=== PATIENT | female | born 1955 | race Caucasian/White ===

== ENCOUNTER 2016-08-27 12:13 | Day surgery (SDC) | payer OTHER ==
[~2016-08-27 12:13] MED LIST: ACET-703 PO; AMIT24CA5 PO; ASPI1TAB69 PO; BACL20TA PO; BETH25 PO; DOMPERIDONE PO; FISH120014 PO; FLUT1INH INH; FLUT1SPR9 EACH NARE; GABA100C4 PO; GARL1CAP PO; HYDR12.57 PO; IPRA17I INH; LISI2.5T3 PO; NYST1000 SWISH-SWAL; PANT20TA2 PO; POTA-163 PO; VENTAER INH; ZOFR8TAB PO
[2016-08-27 12:44] VITALS: BP 115/75; PULSE 72; RESP 20; TEMP 97.9; O2SAT 93
[2016-08-27] MEDS ORDERED: SODIUM CHLORIDE 0.9% 1000 ML IV SCH (13:00)
== END 2016-08-27 13:10 | disposition home or self-care (01) ==
LOC: HROP 12:13 → HRIP 12:14 → HROP 13:10
PROVIDERS: ATTEND Radiology Body Imaging
DX: K94.23 Gastrostomy malfunction (principal)

== ENCOUNTER 2016-09-01 11:37 | Day surgery (SDC) | payer OTHER ==
[2016-09-01 12:00] VITALS: BP 109/80; PULSE 82; RESP 20; TEMP 97.2; O2SAT 85
== END 2016-09-01 13:40 | disposition home or self-care (01) ==
LOC: HROP 11:37 → HRIP 11:44 → HROP 13:40
PROVIDERS: ATTEND Radiology Diagnostic Radiology
DX: K94.23 Gastrostomy malfunction (principal)

== ENCOUNTER → 2016-10-12 | Outpatient (CLI) | payer OTHER ==
[~2016-10-12] MED LIST changes: +CLON0.5T PO; +CREON12 PO; +FEXO180T PO; -FISH120014 PO; -GARL1CAP PO; -HYDR12.57 PO; +LACT10SO27; -LISI2.5T3 PO; +LOVA40TA PO; +SCOP1PAT2; +[UNRECOGNIZED DRUG - CODE] PO
--- NOTE | 2016-10-12 10:37 | RADRPT ---
EXAM DATE/TIME: 10/12/2016 00:00 [facility] COMPARISON: BA SWALLOW W/SPEECH PATHOLOGY, April 13, 2016, 9:52. INDICATIONS : Dysphagia FLUORO TIME: 1.6 minutes IMAGE COUNT: 0 CONTRAST: Dose as prescribed by speech pathologist. MEDICAL HISTORY : Stroke. Gastroparesis. SURGICAL HISTORY : peg tube, anterior cervical fusion ENCOUNTER: Initial ACUITY: 1 year PAIN SCORE: 0/10 LOCATION: Bilateral neck FINDINGS: A modified barium swallow was performed with speech pathology. Patient was given a variety of liquids to swallow. There was penetration seen with thin liquids. No aspiration was seen. For a full detailed report, see report by the speech pathologist. CONCLUSION: Penetration seen with thin liquids. Andrew Porter MD on October 12, 2016 at 10:35 Board Certified Radiologist. This report was verified electronically.
== END ==
LOC: HRAD 09:52
PROVIDERS: ATTEND Internal Medicine Gastroenterology
DX: R13.10 Dysphagia, unspecified (principal); R10.9 Unspecified abdominal pain
CPT/HCPCS: 74230; 92611; G8996; G8997; G8998

== ENCOUNTER 2016-11-16 11:20 | Observation (INO) | payer OTHER ==
[2016-11-16] VITALS (8 sets, daily range): BP systolic 100–118; BP diastolic 67–78; PULSE 50–84; RESP 16–20; TEMP 96.1–96.5; O2SAT 95–100
[~2016-11-16 11:20] MED LIST changes: -CLON0.5T PO; -CREON12 PO; -FEXO180T PO; -LACT10SO27; -LOVA40TA PO; -SCOP1PAT2; -[UNRECOGNIZED DRUG - CODE] PO
[2016-11-16] MEDS ORDERED: SODIUM CHLORIDE 0.9% FLUSH 10 ML FLUSH IVF PRN (11:45)
[2016-11-16] MEDS ORDERED: [UNRECOGNIZED DRUG - CODE] PO (11:51)
[2016-11-16] MEDS ORDERED: LOVA40TA PO (11:51)
[2016-11-16] MEDS ORDERED: CLON0.5T PO (11:51)
[2016-11-16] MEDS ORDERED: SCOP1PAT2 (11:51)
[2016-11-16] MEDS ORDERED: FEXO180T PO (11:51)
[2016-11-16] MEDS ORDERED: CREON12 PO (11:51)
[2016-11-16] MEDS ORDERED: LACT10SO27 (11:52)
[2016-11-16 11:53] LABS: AUTOMATED NEUTROPHIL # 3.2 TH/MM3 (1.8-7.7); BASOPHIL # 0.1 TH/MM3 (0-0.2); BASOPHIL % 1.3 % (0.0-2.0); EOSINOPHIL # 0.2 TH/MM3 (0-0.4); EOSINOPHIL % 4.7 % (0.0-4.0); HEMATOCRIT 49.5 % (35.0-46.0); HEMO FLAGS DIFF FINAL; LYMPH % 23.6 % (9.0-44.0); LYMPHOCYTE # 1.2 TH/MM3 (1.0-4.8); MEAN CELL VOLUME 90.9 FL (80.0-100.0); MEAN CORPUSCULAR HEMOGLOBIN 29.4 PG (27.0-34.0); MEAN CORPUSCULAR HGB CONC 32.3 % (32.0-36.0); MONO % 8.1 % (0.0-8.0); NEUT % 62.3 % (16.0-70.0); PLATELET COUNT 150 TH/MM3 (150-450); RED BLOOD COUNT 5.44 MIL/MM3 (4.00-5.30); RED CELL DISTRIBUTION WIDTH 16.7 % (11.6-17.2); WHITE BLOOD COUNT 5.1 TH/MM3 (4.0-11.0)
[2016-11-16 12:02] LABS: CHLORIDE 100 MEQ/L (98-107); POTASSIUM 3.5 MEQ/L (3.5-5.1); SODIUM (NA) 140 MEQ/L (136-145)
[2016-11-16 12:06] LABS: APTT (PATIENT) 28.9 SEC (24.3-30.1); PROTHROMBIN TIME - PATIENT 10.9 SEC (9.8-11.6)
[2016-11-16 12:07] LABS: ANION GAP 8 MEQ/L (5-15); BICARBONATE 32.3 MEQ/L (21.0-32.0); BLOOD UREA NITROGEN 8 MG/DL (7-18)
[2016-11-16 12:10] LABS: ALT (GPT) 25 U/L (10-53); AST (GOT) 21 U/L (15-37); GLOMERULAR FILTRATION RATE 79 ML/MIN (>89)
[2016-11-16 12:12] LABS: TOTAL BILIRUBIN ADULT 0.5 MG/DL (0.2-1.0)
[2016-11-16 12:13] LABS: ALKALINE PHOSPHATASE 117 U/L (45-117)
[2016-11-16 12:16] LABS: CREATINE KINASE 56 U/L (26-192)
--- NOTE | 2016-11-16 12:20 | RADHPO ---
EXAM DATE/TIME: 11/16/2016 11:47 [facility] COMPARISON: CHEST SINGLE AP, January 14, 2015, 13:42. INDICATIONS : Congestion since feeding tube after surgery was placed. New on set of general weakness and numbness. MEDICAL HISTORY : Hypertension. Chronic obstructive pulmonary disease. Gastroesophageal reflux disease. CVA. A-fib. Asthma. Seizures. SURGICAL HISTORY : Julian fundoplication ENCOUNTER: Initial ACUITY: 4 - 6 months PAIN SCORE: 0/10 LOCATION: Bilateral chest FINDINGS: The heart and mediastinal structures are normal. The pulmonary vascular pattern is also normal. No acute focal pulmonary infiltrate is noted. Scattered mild chronic interstitial changes are noted chai aterally. CONCLUSION: 1. No acute focal pulmonary infiltrate or pulmonary vascular congestion. Natalio Del Angel MD on November 16, 2016 at 12:13 Board Certified Radiologist. This report was verified electronically.
--- NOTE | 2016-11-16 12:22 | PD ---
HPI Chief Complaint: Numbness/Tingling Time Seen by Provider: 11:30 Travel History International Travel<30 days: No Contact w/Intl Traveler<30days: No Traveled to known affect area: No History of Present Illness HPI 61-year-old female presents with right hand weakness and tingling that started last night about 9 PM. She states this morning she had difficulty writing and holding onto things. She states that she's having no other concurrent complaints. She states that Dr. Lorenz is her neurologist that she follows with for her history of seizures and neuropathy. She states on a MRI she had a small stroke show up but she didn't have any known history of stroke that she was aware of. Quality is tingly. Severity is to hand. She denies specific modifying factors. She takes a baby aspirin normally every day PFS Past Medical History Arthritis: No Asthma: Yes Blood Disorders: No Anxiety: No Depression: No Cancer: No Cardiovascular Problems: Yes (IRREGULAR HEARTBEAT) Chemotherapy: No COPD: Yes Cerebrovascular Accident: Yes Diabetes: No Diminished Hearing: No Endocrine: No Gastrointestinal Disorders: Yes (GERD, DIFFICULTY SWALLOWING, N/V) Genitourinary: No Headaches: Yes Hepatitis: No Hiatal Hernia: No Hypertension: Yes Immune Disorder: No Medical other: Yes Musculoskeletal: Yes (ARTHRITIS, TORN RIGHT KNEE MENISCUS) Neurologic: Yes (MYOCLONIC TYPE SEIZURES) Psychiatric: No Reproductive: No Respiratory: Yes (copd) Migraines: No Radiation Therapy: No Seizures: Yes (takes baclofen) Sleep Apnea: No Thyroid Disease: No Influenza Vaccination: Yes ?: Not Menopausal: Yes Past Surgical History Abdominal Surgery: Yes (BARBI FUNDOPLICATION) AICD: No Arteriovenous Shunt: No Body Medical Devices: NONE Cardiac Surgery: No Ear Surgery: No Endocrine Surgery: No Eye Surgery: No Genitourinary Surgery: No Gynecologic Surgery: No Insulin Pump: No Joint Replacement: No Neurologic Surgery: No Oral Surgery: Yes (TONSILLECTOMY AND ADENOIDECTOMY) Pacemaker: No Thoracic Surgery: No Tonsillectomy: Yes Other Surgery: Yes (NECK SURGERY, NOSE SURGERY,FUNDOPLICATION) Social History Alcohol Use: No Tobacco Use: Yes (1PPD) Substance Use: No Allergies-Medications (Allergen,Severity, Reaction): Coded Allergies: Benadryl (Verified Allergy, Severe, UNABLE TO BREATHE, 11/16/16) Dronabinol (Unverified Allergy, Severe, confusions paranoid seizure like activity, 11/16/16) Motrin (Verified Allergy, Severe, AFFECTS MY STOMACH, 11/16/16) ANTIHISTAMINE DRUGS (Verified Allergy, Intermediate, 11/16/16) difficulty breathing Aspirin (Verified Allergy, Intermediate, NAUSEA, 11/16/16) do not take a full strength, can only take a baby aspirin and enteric coated. Codeine (Verified Allergy, Intermediate, 11/16/16) massive headaches Epinephrine (Verified Allergy, Unknown, PT DOESN'T RECALL HAVING ALLERGY/ ADVERSE, 11/16/16) Reported Meds & Prescriptions Reported Meds & Active Scripts Active Reported Lactulose Liq (Lactulose (Encephalopathy) Liq) 19 Gm/15 Ml Soln Transderm-Scop (Scopolamine) 1 Mg/3 Days Dis Clonazepam 0.5 Mg Tab 0.5 Mg PO BID Fexofenadine (Fexofenadine HCl) 180 Mg Tab 180 Mg PO DAILY Lovastatin 40 Mg Tab 40 Mg PO DAILY Creon (Amylase/Lipase/Protease) 12,000-38,000-60,000 Units Cap 1 Cap PO TIDPC Tylenol Extra Strength (Acetaminophen) 500 Mg Tab 500 Mg PO Q4-6H PRN Gabapentin 100 Mg Cap 100 Mg PO BID Nystatin Liq 100,000 unit/ml Susp 5 Ml SWISH-SWAL QID Pantoprazole (Pantoprazole Sodium) 20 Mg Tab 20 Mg PO DAILY Ventolin Hfa 18 GM Inh (Albuterol Sulfate) 90 Mcg/Act Aer 2 Puff INH Q4H PRN Potassium Chloride ER (Potassium Chloride) 20 Meq Tab 99 Meq PO BID Zofran (Ondansetron HCl) 8 Mg Tab 4 Mg PO TID PRN Flonase Allergy Relief Children Nasal [place] (Fluticasone Nasal [place]) 50 Mcg/ Act [place] 1 [place] EACH NARE DAILY 50 mcg/spray Breo Ellipta Inh (Fluticasone/Vilanterol) 100-25 Mcg/Act Inh 1 Puff INH DAILY Use daily at the same time. Baclofen 20 Mg Tab 20 Mg PO QID Aspirin 81 Mg Tabdr 81 Mg PO DAILY Amitiza (Lubiprostone) 24 Mcg Cap 24 Mg PO BID Urecholine (Bethanechol Chloride) 25 Mg Tab 25 Mg PO TID Atrovent HFA 12.9 GM Inh (Ipratropium [place]) 17 Mcg/Act Aer 2 Puff INH QID [Domperidone] 10 Mg PO TIDAC Review of Systems Except as stated in HPI: all other systems reviewed are Neg Physical Exam Narrative GENERAL: Well-nourished, well-developed patient. SKIN: Warm and dry. HEAD: Normocephalic and atraumatic. EYES: No injection or drainage. ENT: No nasal drainage noted. NECK: Supple, trachea midline. CARDIOVASCULAR: Regular rate and rhythm RESPIRATORY: no increased effort. No accessory muscle use. EXTREMITIES: No edema. NEUROLOGICAL: Awake and alert. Decreased grasp on the right with subjective decreased sensation to hands, no pronator drift, no facial droop. Normal speech. Motor and neuro otherwise nonfocal Data Data Last Documented VS Vital Signs Date Time Temp Pulse Resp B/P Pulse Ox O2 Delivery O2 Flow Rate FiO2 11/16/16 11:51 84 20 113/67 98 Nasal Cannula 3 Orders Electrocardiogram (11/16/16 11:36) Prothrombin Time / Inr (Pt) (11/16/16 11:36) Act Partial Throm Time (Ptt) (11/16/16 11:36) Complete Blood Count With Diff (11/16/16 11:36) Comprehensive Metabolic Panel (11/16/16 11:36) Creatine Kinase (Cpk) (11/16/16 11:36) Drug Screen, Random Urine (11/16/16 11:36) Troponin I (11/16/16 11:36) Urinalysis - C+S If Indicated (11/16/16 11:36) Ct Brain W/O Iv Contrast(Rout) (11/16/16 11:36) Chest, Single Ap (11/16/16 11:36) Ecg Monitoring (11/16/16 11:36) Iv Access Insert/Monitor (11/16/16 11:36) Oximetry (11/16/16 11:36) Sodium Chloride 0.9% Flush (Ns Flush) (11/16/16 11:45) Nursing Bedside Swallow Assess .ONCE (11/16/16 13:01) Aspirin (Aspirin) (11/16/16 13:15) Admit Order (Ed Use Only) (11/16/16 13:30) Labs Laboratory Tests Test 11/16/16 11:30 White Blood Count 5.1 TH/MM3 Red Blood Count 5.44 MIL/MM3 Hemoglobin 16.0 GM/DL Hematocrit 49.5 % Mean Corpuscular Volume 90.9 FL Mean Corpuscular Hemoglobin 29.4 PG Mean Corpuscular Hemoglobin 32.3 % Concent Red Cell Distribution Width 16.7 % Platelet Count 150 TH/MM3 Mean Platelet Volume 8.7 FL Neutrophils (%) (Auto) 62.3 % Lymphocytes (%) (Auto) 23.6 % Monocytes (%) (Auto) 8.1 % Eosinophils (%) (Auto) 4.7 % Basophils (%) (Auto) 1.3 % Neutrophils # (Auto) 3.2 TH/MM3 Lymphocytes # (Auto) 1.2 TH/MM3 Monocytes # (Auto) 0.4 TH/MM3 Eosinophils # (Auto) 0.2 TH/MM3 Basophils # (Auto) 0.1 TH/MM3 CBC Comment DIFF FINAL Differential Comment Prothrombin Time 10.9 SEC Prothromb Time International 1.0 RATIO Ratio Activated Partial 28.9 SEC Thromboplast Time Sodium Level 140 MEQ/L Potassium Level 3.5 MEQ/L Chloride Level 100 MEQ/L Carbon Dioxide Level 32.3 MEQ/L Anion Gap 8 MEQ/L Blood Urea Nitrogen 8 MG/DL Creatinine 0.75 MG/DL Estimat Glomerular Filtration 79 ML/MIN Rate Random Glucose 76 MG/DL Calcium Level 8.3 MG/DL Total Bilirubin 0.5 MG/DL Aspartate Amino Transf 21 U/L (AST/SGOT) Alanine Aminotransferase 25 U/L (ALT/SGPT) Alkaline Phosphatase 117 U/L Total Creatine Kinase 56 U/L Troponin I LESS THAN 0.02 NG/ML Total Protein 7.2 GM/DL Albumin 3.2 GM/DL MDM Medical Decision Making Medical Screen Exam Complete: Yes Emergency Medical Condition: Yes Medical Record Reviewed: Yes (past history confirmed) Interpretation(s) CBC & BMP Diagram 11/16/16 11:30 Last [address] 11/16/16 1136 Signed Impressions: Service Date/Time: Wednesday, November 16, 2016 11:52 - CONCLUSION: Negative noncontrast CT brain. Bentley Godoy MD Differential Diagnosis TIA, stroke, bleed, electrolyte, migraine, seizure Narrative Course Will check stroke workup and discuss with her neurologist ed workup without acute findings on CT and lab work. We'll discuss with her neurologist Patient agrees to observation for further testing. Given aspirin Physician Communication Physician Communication dr kumar states to place in observation dr ramirez agrees to admit Diagnosis Primary Impression: Right hand weakness Additional Impression: Numbness of right hand Myah Mitchell MD Nov 16, 2016 12:22
--- NOTE | 2016-11-16 12:29 | RADHPO ---
EXAM DATE/TIME: 11/16/2016 11:52 [facility] COMPARISON: CT BRAIN W/O CONTRAST, February 27, 2016, 12:15. INDICATIONS : Right upper extremity weakness. RADIATION DOSE: 47.55 CTDIvol (mGy) MEDICAL HISTORY : Hypertension. Chronic obstructive pulmonary disease. Cerebrovascular disease. SURGICAL HISTORY : Tonsillectomy. Orthopedic surgery ENCOUNTER: Initial ACUITY: 2 days PAIN SCALE: 0/10 LOCATION: cranial TECHNIQUE: Multiple contiguous axial images were obtained of the head. Using automated exposure control and adj ustment of the mA and/or kV according to patient size, radiation dose was kept as low as reasonably a chievable to obtain optimal diagnostic quality images. FINDINGS: CEREBRUM: The ventricles are normal for age. No evidence of midline shift, mass lesion, hemorrhage or acute in farction. No extra-axial fluid collections are seen. POSTERIOR FOSSA: The cerebellum and brainstem are intact. The 4th ventricle is midline. The cerebellopontine angle i s unremarkable. EXTRACRANIAL: The visualized portion of the orbits is intact. SKULL: The calvaria is intact. No evidence of skull fracture. CONCLUSION: Negative noncontrast CT brain. Bentley Godoy MD on November 16, 2016 at 12:26 Board Certified Radiologist. This report was verified electronically.
[2016-11-16] MEDS ORDERED: ASPIRIN 325 MG TAB PO ONE (13:15)
[2016-11-16] MEDS ORDERED: SODIUM CHLORIDE 0.9% FLUSH 10 ML FLUSH IV FLUSH PRN (13:45)
[2016-11-16] MEDS ORDERED: GLUCAGON 1 MG/ML VIAL OTHER PRN (13:45)
[2016-11-16] MEDS ORDERED: ENALAPRILAT 1.25 MG/ML VIAL IV PRN (13:45)
[2016-11-16] MEDS ORDERED: DEXTROSE 50% IN WATER 50 ML VIAL(D50) IV PUSH PRN (13:45)
[2016-11-16] MEDS ORDERED: ALBUTEROL SULFATE 90 MCG/ACT HFA 8 GM INHALER INH PRN (13:45)
[2016-11-16 13:59] LABS: BLOOD, URINE NEG (NEG); GLUCOSE,URINE NEG (NEG); KETONE, URINE NEG (NEG); NITRITE,URINE NEG (NEG); PH, URINE 6.5 (5.0-8.5)
[2016-11-16 14:08] LABS: BACTERIA, URINE MOD /hpf; COMMENT (UR) CULTURE INDICATED; CULTURE IF INDICATED CULTURE INDICATED; METHOD OF COLLECTION CLEAN CATCH; URINE COLOR YELLOW (YELLW/STRAW); WBC, URINE 15-19 /hpf (0-5)
[2016-11-16] MEDS: SODIUM CHLOR 0.9% 1000 ML INJ 1,000 ML IV SCH (14:15)
[2016-11-16 15:45] LABS: AMPHETAMINE, URINE NEG (NEG); BARBITURATES, URINE NEG (NEG)
[2016-11-16 15:46] LABS: COCAINE, URINE NEG (NEG)
[2016-11-16] MEDS: INSULIN ASPART SUPPLEMENTAL SCALE SQ SCH ×2 (16:00→21:00)
[2016-11-16] MEDS ORDERED: INSULIN ASPART SUPPLEMENTAL SCALE SQ SCH (16:00)
--- NOTE | 2016-11-16 16:39 | HHI.HP ---
[facility] Shannan Knowles Do, MD Admission Diagnosis right hand weakness and numbness Diagnoses: Chief Complaint: Right upper extremity numbness and weakness Travel History International Travel<30 Days: No Contact w/Intl Traveler <30 Da: No Traveled to Known Affected Are: No History of Present Illness 61-year-old female with a past medical history of gastroparesis, HLD, COPD, GERD , seizures, neuropathy, anxiety who presented with right upper extremity weakness and numbness. Patient states that last night she was having right hand weakness and tingling. This morning she was having difficulty with coordination and holding onto things. She states she noticed that her right leg was also weak after she came to the ED. He states she's has a mild headache. She states that recently she has been having occasional problems with vision focus. She denies any history of atrial fibrillation. She denies any fevers. She does take a baby aspirin every day. She follows with Dr. Lorenz with neurology for neuropathy and history of seizures. Her at bedside states that her speech is at baseline. She does normally eat by mouth and by feeding tube, has not tried to eat by mouth yet, but would like to try. She normally ambulates with a rolling walker. She denies any urinary symptoms. She states that she had a brain MRI recently with Dr. Lorenz, he told her he saw an old stroke on it. Review of Systems Except as stated in HPI: all other systems reviewed are Neg Past Family Social History Past Medical History Gastroparesis Hyperlipidemia COPD GERD Seizures Neuropathy Anxiety Past Surgical History Tonsillectomy This and fundoplication Feeding tube placement C-spine surgery Reported Medications Lactulose Liq (Lactulose (Encephalopathy) Liq) 19 Gm/15 Ml Soln Transderm-Scop (Scopolamine) 1 Mg/3 Days Dis Clonazepam 0.5 Mg Tab 0.5 Mg PO BID Fexofenadine (Fexofenadine HCl) 180 Mg Tab 180 Mg PO DAILY Lovastatin 40 Mg Tab 40 Mg PO DAILY Creon (Amylase/Lipase/Protease) 12,000-38,000-60,000 Units Cap 1 Cap PO TIDPC Tylenol Extra Strength (Acetaminophen) 500 Mg Tab 500 Mg PO Q4-6H PRN Gabapentin 100 Mg Cap 100 Mg PO BID Nystatin Liq 100,000 unit/ml Susp 5 Ml SWISH-SWAL QID Pantoprazole (Pantoprazole Sodium) 20 Mg Tab 20 Mg PO DAILY Ventolin Hfa 18 GM Inh (Albuterol Sulfate) 90 Mcg/Act Aer 2 Puff INH Q4H PRN Potassium Chloride ER (Potassium Chloride) 20 Meq Tab 99 Meq PO BID Zofran (Ondansetron HCl) 8 Mg Tab 4 Mg PO TID PRN Flonase Allergy Relief Children Nasal [place] (Fluticasone Nasal [place]) 50 Mcg/ Act [place] 1 [place] EACH NARE DAILY 50 mcg/spray Breo Ellipta Inh (Fluticasone/Vilanterol) 100-25 Mcg/Act Inh 1 Puff INH DAILY Use daily at the same time. Baclofen 20 Mg Tab 20 Mg PO QID Aspirin 81 Mg Tabdr 81 Mg PO DAILY Amitiza (Lubiprostone) 24 Mcg Cap 24 Mg PO BID Urecholine (Bethanechol Chloride) 25 Mg Tab 25 Mg PO TID Atrovent HFA 12.9 GM Inh (Ipratropium [place]) 17 Mcg/Act Aer 2 Puff INH QID [Domperidone] 10 Mg PO TIDAC Allergies: Coded Allergies: Benadryl (Verified Allergy, Severe, UNABLE TO BREATHE, 11/16/16) Dronabinol (Unverified Allergy, Severe, confusions paranoid seizure like activity, 11/16/16) Motrin (Verified Allergy, Severe, AFFECTS MY STOMACH, 11/16/16) ANTIHISTAMINE DRUGS (Verified Allergy, Intermediate, 11/16/16) difficulty breathing Aspirin (Verified Allergy, Intermediate, NAUSEA, 11/16/16) do not take a full strength, can only take a baby aspirin and enteric coated. Codeine (Verified Allergy, Intermediate, 11/16/16) massive headaches Epinephrine (Verified Allergy, Unknown, PT DOESN'T RECALL HAVING ALLERGY/ ADVERSE, 11/16/16) Active Ordered Medications Current Medications Medications (Trade) Dose Ordered Sig/Juan Route Start Time Stop Time Status Last Admin (NS Flush) 2 ml UNSCH PRN IVF 11/16/16 11:45 (Proair Hfa Inh) 2 puff Q4H PRN INH 11/16/16 13:45 (Urecholine) 25 mg TID PO 11/16/16 18:00 (KlonoPIN) 0.5 mg BID PO 11/16/16 21:00 (Flonase [place] Spr) 1 spray DAILY EACH NARE 11/17/16 09:00 (Breo Ellipta 100-25 Inh) 1 puff DAILY INH 11/17/16 09:00 (Neurontin) 100 mg BID PO 11/16/16 21:00 (Atrovent Hfa Inh) 2 puff QID INH 11/16/16 18:00 (Pravachol) 40 mg DAILY PO 11/17/16 09:00 (Creon 12-38-60) 1 cap TIDPC PO 11/16/16 18:30 (Protonix) 20 mg DAILY PO 11/17/16 09:00 (Claritin) 10 mg DAILY PO 11/17/16 09:00 (NS Flush) 2 ml BID IV FLUSH 11/16/16 21:00 Sodium Chloride 2 ml 2 ml UNSCH PRN IV FLUSH 11/16/16 13:45 (NS 1000 ml Inj) 1,000 ml @ 70 mls/hr [id number] IV 11/16/16 13:40 11/16/16 14:15 (Vasotec Inj) 1.25 mg Q4H PRN IV 11/16/16 13:45 (Aspirin) 325 mg DAILY PO 11/17/16 09:00 (D50w (Vial) Inj) 25 ml UNSCH PRN IV PUSH 11/16/16 13:45 (Glucagon Inj) 1 mg UNSCH PRN OTHER 11/16/16 13:45 Family History Adopted, but does know that her mother had diabetes Social History Continues to smoke tobacco Denies any alcohol use Physical Exam Vital Signs Vital Signs Date Time Temp Pulse Resp B/P Pulse Ox O2 Delivery O2 Flow Rate FiO2 11/16/16 14:00 Nasal Cannula 3.00 11/16/16 13:59 57 18 100/ 98 Nasal Cannula 3 11/16/16 11:51 84 20 113/67 98 Nasal Cannula 3 11/16/16 11:41 98 3 11/16/16 11:33 82 18 118/78 98 Physical Exam GENERAL: Well-developed well-nourished. In no acute distress. SKIN: Warm and dry. No lesions noted. HEENT: Normocephalic. Pupils equal and round. Mucous membranes pink and moist. CARDIOVASCULAR: Regular rate and rhythm. No murmur appreciated. RESPIRATORY: No accessory muscle use. Clear to auscultation. Breath sounds equal bilaterally. GASTROINTESTINAL: Abdomen soft, non-tender, nondistended. Bowel sounds x4. PEG tube in place. MUSCULOSKELETAL: No obvious deformities. No clubbing or cyanosis. No edema. NEUROLOGICAL: Awake and alert. Normal speech. Right upper extremity weakness no pronator drift.. Bilateral lower extremity weakness with right worse than left. No facial asymmetry, cranial nerves grossly intact. PSYCHIATRIC: Appropriate mood and affect; insight and judgment normal. Laboratory Laboratory Tests Test 11/16/16 11/16/16 11:30 13:45 White Blood Count 5.1 Red Blood Count 5.44 Hemoglobin 16.0 Hematocrit 49.5 Mean Corpuscular Volume 90.9 Mean Corpuscular Hemoglobin 29.4 Mean Corpuscular Hemoglobin 32.3 Concent Red Cell Distribution Width 16.7 Platelet Count 150 Mean Platelet Volume 8.7 Neutrophils (%) (Auto) 62.3 Lymphocytes (%) (Auto) 23.6 Monocytes (%) (Auto) 8.1 Eosinophils (%) (Auto) 4.7 Basophils (%) (Auto) 1.3 Neutrophils # (Auto) 3.2 Lymphocytes # (Auto) 1.2 Monocytes # (Auto) 0.4 Eosinophils # (Auto) 0.2 Basophils # (Auto) 0.1 CBC Comment DIFF FINAL Differential Comment Prothrombin Time 10.9 Prothromb Time International 1.0 Ratio Activated Partial 28.9 Thromboplast Time Sodium Level 140 Potassium Level 3.5 Chloride Level 100 Carbon Dioxide Level 32.3 Anion Gap 8 Blood Urea Nitrogen 8 Creatinine 0.75 Estimat Glomerular Filtration 79 Rate Random Glucose 76 Calcium Level 8.3 Total Bilirubin 0.5 Aspartate Amino Transf 21 (AST/SGOT) Alanine Aminotransferase 25 (ALT/SGPT) Alkaline Phosphatase 117 Total Creatine Kinase 56 Troponin I LESS THAN 0.02 Total Protein 7.2 Albumin 3.2 Urine Collection Type CLEAN CATCH Urine Color YELLOW Urine Turbidity CLEAR Urine pH 6.5 Urine Specific [place] 1.004 Urine Protein NEG Urine Glucose (UA) NEG Urine Ketones NEG Urine Occult Blood NEG Urine Nitrite NEG Urine Bilirubin NEG Urine Leukocyte Esterase MOD Urine WBC 15-19 Urine WBC Clumps OCC Urine Squamous Epithelial 6-8 Cells Urine Amorphous Sediment FEW Urine Bacteria MOD Microscopic Urinalysis Comment CULTURE INDICATED Urine Collection Time 1345 Urine Opiates Screen NEG Urine Barbiturates Screen NEG Urine Amphetamines Screen NEG Urine Benzodiazepines Screen NEG Urine Cocaine Screen NEG Urine Cannabinoids Screen NEG Date/Time Procedure Status Source Growth 11/16/16 13:45 Urine Culture Received Urine Clean Catch Pending Result Diagram: 11/16/16 1130 11/16/16 1130 Imaging Last Impressions Head CT 11/16/16 1136 Signed Impressions: Service Date/Time: Wednesday, November 16, 2016 11:52 - CONCLUSION: Negative noncontrast CT brain. Bentley Godoy MD Assessment and Plan Assessment and Plan 61-year-old female with a past medical history of gastroparesis, HLD, COPD, GERD , seizures, neuropathy, anxiety who presented with right upper extremity weakness and numbness Acute CVA: Right-sided weakness and paresthesias. Imaging reviewed: Head CT with no acute process. Brain MRI, MRA, carotid ultrasound pending. -Neurology was contacted from the ED, -Check echocardiogram -NIH stroke scale, swallow eval, neuro checks -IVF and permissive hypertension, HOB flat -Home aspirin increased from 81 mg to 325 per neurology recommendations -Check lipid profile and hemoglobin A1c. Continue statin -PT/OT/ST Abnormal UA: Patient denies any urinary symptoms. UA appears contaminated with multiple squamous epithelial cells. Follow-up urine culture. Gastroparesis: Chronic, stable. Resume home tube feedings. Continue PPI, bethanechol, Creon. COPD: Chronic, stable. Continue home Breo, Atrovent, albuterol, fluticasone, fexofenadine. Chronic medical conditions are stable at this time and will continue home medications as indicated. DVT prophylaxis: SCDs Written by Sarthak López, acting as scribe for Dr. Ventura on 11/16/16 at 16:39. This note was transcribed by scribghazala López. I, Dr. Emigdio Ventura personally performed the history, physical exam, and medical decision making; and confirmed the accuracy of the information in the transcribed note. Authenticated by Dr. Emigdio Ventura on 11/16/16 at 18:56. Discussed Condition With Patient with and RN at bedside Sarthak López Nov 16, 2016 16:39 Emigdio Ventura MD Nov 16, 2016 18:56
[2016-11-16] MEDS ORDERED: IPRATROPIUM BROMIDE 17 MCG/ACT 12.9 GM INHALER INH SCH (18:00)
--- NOTE | 2016-11-16 18:05 | RADHPO ---
EXAM DATE/TIME: 11/16/2016 15:01 [facility] COMPARISON: No previous studies available for comparison. INDICATIONS : CVA. MEDICAL HISTORY : Hypertension. Chronic obstructive pulmonary disease. Gastroesophageal reflux disease. CVA. Seizures. Hyperlipidemia. SURGICAL HISTORY : Tonsillectomy. C3-4 bone replacement. Neck surgery. ENCOUNTER: Initial ACUITY: 1 day PAIN SCORE: 2/10 LOCATION: Bilateral neck PEAK SYSTOLIC VELOCITIES (cm/sec): ICA/CCA RATIO: Right: 1.1 Left: 1.1 ICA: Right: 70 Left: 83 CCA: Right: 63 Left: 73 ECA: Right: 58 Left: 69 VERTEBRAL: Right: 70 antegrade Left: 50 antegrade Elevated flow velocities and ICA/CCA ratios have been found to correlate with increased degrees of vessel stenosis, calculated as percentage of diameter relative to a normal segment of distal ICA/CCA FINDINGS: RIGHT CAROTID: No significant stenosis is visualized. The waveforms are within normal limits. LEFT CAROTID: No significant stenosis is visualized. The waveforms are within normal limits. VERTEBRAL ARTERIES: Antegrade flow is seen in both vertebral arteries. MISCELLANEOUS: None. CONCLUSION: Negative exam. Kelechi Mallory MD on November 16, 2016 at 18:02 Board Certified Radiologist. This report was verified electronically.
--- NOTE | 2016-11-16 18:15 | RADHPO ---
EXAM DATE/TIME: 11/16/2016 14:39 [facility] COMPARISON: MRA BRAIN W/O CONTRAST, November 16, 2016, 14:39. CT BRAIN W/O CONTRAST, February 27, 2016, 12:15. CT BRAI N W/O CONTRAST, November 16, 2016, 11:52. INDICATIONS : TIA. Right sided tingling. MEDICAL HISTORY : Hypertension. SURGICAL HISTORY : Tonsillectomy. Fusion, cervical. Julian fundoplication. ENCOUNTER: Subsequent ACUITY: 1 day PAIN SCORE: 0/10 LOCATION: head. TECHNIQUE: Multiplanar, multisequence MRI of the brain was performed without contrast. FINDINGS: CEREBRUM: The ventricles are normal in size. No evidence of midline shift. No extra-axial fluid collections. In the left anterior temporal region, there is an area of T2 prolongation measuring 2.4 cm in size w hich has the appearance characteristic of focal atrophy or old infarction. The configuration is unch anged when compared to prior CT scans dating back to January 2016. There is no focal restricted diffusi on in this area. The temporal horn is not dilated. The pituitary gland is normal in appearance. WHITE MATTER: There are a few scattered areas of T2 prolongation in the supratentorial white matter. POSTERIOR FOSSA: The cerebellum and brainstem are intact. The 4th ventricle is midline. The cerebellopontine angle is unremarkable. The cerebellar tonsils are normal in position. DIFFUSION IMAGING: No focal areas of restricted diffusion are seen. No evidence of acute infarction. EXTRACRANIAL: The visualized portions of the orbits and paranasal sinuses are unremarkable. CONCLUSION: 1. No evidence of acute stroke or acute hemorrhage. 2. Focal area of chronic cortical atrophy in the anterior left temporal lobe. Bentley Godoy MD on November 16, 2016 at 18:03 Board Certified Radiologist. This report was verified electronically.
--- NOTE | 2016-11-16 18:21 | RADHPO ---
EXAM DATE/TIME: 11/16/2016 14:39 [place] COMPARISON: MRI BRAIN W/O CONTRAST, November 16, 2016, 14:39. INDICATIONS : TIA. Right sided numbness. MEDICAL HISTORY : Hypertension. SURGICAL HISTORY : Tonsillectomy. Fusion, cervical. Julian fundoplication. ENCOUNTER: Subsequent ACUITY: 1 day PAIN SCORE: 0/10 LOCATION: head. Please note a normal MRA of the brain does not entirely exclude the possibility of a small aneurysm, nor the possibility of distal intracranial vessel disease. TECHNIQUE: 3D time of flight MRA was performed. Source images, multiplanar STS MIP, and 3D volume MIP reconstru ctions were reviewed. FINDINGS: There is an aneurysm located anterior to the proximal A2 segment on the right side which measures 4 m m. Anterior communicating artery is not identified and this could arise from the anterior indicating artery. The left A1 segment is atrophic but flow is seen within. No other aneurysms seen. There i s symmetric flow in the branch vessels of the MCA. The left posterior cerebral artery originates fro m the anterior circulation. The basilar artery is normal in appearance. CONCLUSION: 4 mm aneurysm arising right paramedian arising either from the proximal A2 segment or anterior commun icating artery. Bentley Godoy MD on November 16, 2016 at 18:14 Board Certified Radiologist. This report was verified electronically.
[2016-11-16] MEDS: LIPASE/PROTEASE/AMYLASE (12,000/38,000/60,000) CAP PO SCH (18:22)
[2016-11-16] MEDS: TIOTROPIUM BROMIDE 18 MCG INH INH SCH (18:25)
[2016-11-16] MEDS: BETHANECHOL CHL 25 MG TAB PO SCH (18:28)
[2016-11-16 20:56] LABS: HEMOGLOBIN A1a 1.1 %; HEMOGLOBIN F 1.2 %
[2016-11-16 20:57] LABS: HEMOGLOBIN Ao 84.2 %; HEMOGLOBIN P3 3.9 %
[2016-11-16] MEDS: GABAPENTIN 100 MG CAP PO SCH (20:58)
[2016-11-16] MEDS: clonazePAM 0.5 MG TAB PO SCH (20:58)
[2016-11-16] MEDS: SODIUM CHLORIDE 0.9% FLUSH 10 ML FLUSH IV FLUSH SCH (20:59)
--- NOTE | 2016-11-16 23:57 | EKG ---
Date Performed: 11/16/2016 Time Performed: 11:26:36 PTAGE: 61 years EKG: Sinus rhythm Possible left atrial abnormality Possible inferior infarct - age undetermined Low QRS voltages in li mb leads Abnormal ECG PREVIOUS TRACING : 04/29/2016 08.55 Compared to the previous tracing, change in QRS transition may be due to lead placement DOCTOR: Marquez Soto Interpretating Date/Time 11/16/2016 23:56:40
[2016-11-17] VITALS (8 sets, daily range): BP systolic 102–147; BP diastolic 71–93; PULSE 58–65; RESP 17–20; TEMP 96.5–96.9; O2SAT 93–98
[2016-11-17] MEDS: SODIUM CHLOR 0.9% 1000 ML INJ 1,000 ML IV SCH (03:58)
[2016-11-17] MEDS ORDERED: ACETAMINOPHEN 325 MG TAB PO ONE (04:30)
[2016-11-17] MEDS: INSULIN ASPART SUPPLEMENTAL SCALE SQ SCH ×2 (06:23→11:00)
[2016-11-17 06:37] LABS: AUTOMATED NEUTROPHIL # 2.7 TH/MM3 (1.8-7.7); BASOPHIL # 0.1 TH/MM3 (0-0.2); EOSINOPHIL # 0.4 TH/MM3 (0-0.4); HEMATOCRIT 47.1 % (35.0-46.0); HEMO FLAGS DIFF FINAL; LYMPH % 24.4 % (9.0-44.0); LYMPHOCYTE # 1.2 TH/MM3 (1.0-4.8); MEAN CELL VOLUME 91.2 FL (80.0-100.0); MEAN CORPUSCULAR HEMOGLOBIN 29.4 PG (27.0-34.0); MEAN CORPUSCULAR HGB CONC 32.3 % (32.0-36.0); MONO % 12.7 % (0.0-8.0); NEUT % 52.9 % (16.0-70.0); PLATELET COUNT 135 TH/MM3 (150-450); RED BLOOD COUNT 5.16 MIL/MM3 (4.00-5.30); RED CELL DISTRIBUTION WIDTH 16.5 % (11.6-17.2)
[2016-11-17 06:53] LABS: BICARBONATE 33.4 MEQ/L (21.0-32.0)
[2016-11-17] MEDS: PRAVASTATIN SOD 40 MG TAB PO SCH (09:04)
[2016-11-17] MEDS: PANTOPRAZOLE SOD 20 MG DELAYED RELEASE TAB PO SCH (09:04)
[2016-11-17] MEDS: clonazePAM 0.5 MG TAB PO SCH ×2 (09:05→20:58)
[2016-11-17] MEDS: FLUTICASONE PROPIONATE 50 MCG/ACT 16 GM NASAL SPRAY EACH NARE SCH (09:05)
[2016-11-17] MEDS: LORATADINE 10 MG TAB PO SCH (09:05)
[2016-11-17] MEDS: BETHANECHOL CHL 25 MG TAB PO SCH ×3 (09:05→17:25)
[2016-11-17] MEDS: FLUTICASONE 100 MCG/VILANTEROL 25 MCG INHALER INH SCH (09:05)
[2016-11-17] MEDS: TIOTROPIUM BROMIDE 18 MCG INH INH SCH (09:05)
[2016-11-17] MEDS: ASPIRIN 325 MG TAB PO SCH (09:05)
[2016-11-17] MEDS: SODIUM CHLORIDE 0.9% FLUSH 10 ML FLUSH IV FLUSH SCH ×2 (09:06→20:58)
[2016-11-17] MEDS: GABAPENTIN 100 MG CAP PO SCH ×2 (09:16→20:58)
[2016-11-17] MEDS: LIPASE/PROTEASE/AMYLASE (12,000/38,000/60,000) CAP PO SCH ×3 (09:20→17:25)
--- NOTE | 2016-11-17 09:29 | HHI.PR ---
Subjective Remarks Follow-up right hand numbness and weakness and headache. Improving symptoms participated with physical therapy. Made aware of cerebral aneurysm and recommendations by neurosurgery. She wants to follow-up with Dr. Redding her previous neurosurgeon Objective Vitals Vital Signs Date Time Temp Pulse Resp B/P Pulse Ox O2 Delivery O2 Flow Rate FiO2 11/17/16 04:00 96.5 60 18 132/80 96 11/17/16 00:00 96.8 65 18 102/71 98 11/16/16 23:00 65 11/16/16 20:50 95 Nasal Cannula 2.00 11/16/16 20:30 65 11/16/16 20:00 96.1 60 18 107/70 97 11/16/16 16:00 96.5 56 16 108/67 100 11/16/16 14:00 Nasal Cannula 3.00 11/16/16 13:59 57 18 100/ 98 Nasal Cannula 3 11/16/16 11:51 84 20 113/67 98 Nasal Cannula 3 11/16/16 11:41 98 3 11/16/16 11:33 82 18 118/78 98 I/O 11/16/16 11/16/16 11/16/16 11/17/16 11/17/16 11/17/16 07:00 15:00 23:00 07:00 15:00 23:00 Intake Total 598 ml 575 ml Output Total 400 ml 800 ml Balance 198 ml -225 ml Intake Oral 240 ml IV Total 358 ml 575 ml Output Urine Total 400 ml 800 ml # Bowel Movements 0 0 Result Diagram: 11/17/16 0555 11/17/16 0555 Imaging Last Impressions Head CT 11/16/16 1136 Signed Impressions: Service Date/Time: Wednesday, November 16, 2016 11:52 - CONCLUSION: Negative noncontrast CT brain. Bentley Godoy MD Chest X-Ray 11/16/16 1136 Signed Impressions: Service Date/Time: Wednesday, November 16, 2016 11:47 - CONCLUSION: 1. No acute focal pulmonary infiltrate or pulmonary vascular congestion. Natalio Del Angel MD Head Magnetic Resonance Angiography 11/16/16 0000 Signed Impressions: Service Date/Time: Wednesday, November 16, 2016 14:39 - CONCLUSION: 4 mm aneurysm arising right paramedian arising either from the proximal A2 segment or anterior communicating artery. Bentley Godoy MD Carotid Artery Ultrasound 11/16/16 0000 Signed Impressions: Service Date/Time: Wednesday, November 16, 2016 15:01 - CONCLUSION: Negative exam. Kelechi Mallory MD Brain MRI 11/16/16 0000 Signed Impressions: Service Date/Time: Wednesday, November 16, 2016 14:39 - CONCLUSION: 1. No evidence of acute stroke or acute hemorrhage. 2. Focal area of chronic cortical atrophy in the anterior left temporal lobe. Bentley Godoy MD Objective Remarks GENERAL: Well-developed well-nourished. In no acute distress. SKIN: Warm and dry. No lesions noted. HEENT: Normocephalic. Pupils equal and round. Mucous membranes pink and moist. CARDIOVASCULAR: Regular rate and rhythm. No murmur appreciated. RESPIRATORY: No accessory muscle use. Clear to auscultation. Breath sounds equal bilaterally. GASTROINTESTINAL: Abdomen soft, non-tender, nondistended. Bowel sounds x4. PEG tube in place. MUSCULOSKELETAL: No obvious deformities. No clubbing or cyanosis. No edema. NEUROLOGICAL: Awake and alert. Normal speech. Improving Right upper extremity weakness no pronator drift.. Bilateral lower extremity weakness with right worse than left. No facial asymmetry, cranial nerves grossly intact. PSYCHIATRIC: Appropriate mood and affect; insight and judgment normal. Procedures Non- A/P Problem List: (1) Right hand weakness ICD Code: R29.898 Status: Acute (2) Numbness of right hand ICD Code: R20.0 Status: Acute Assessment and Plan 61-year-old female with a past medical history of gastroparesis, HLD, COPD, GERD , seizures, neuropathy, anxiety who presented with right upper extremity weakness and numbness Right-sided weakness and paresthesias with headache. TIA versus complicated migraine Imaging reviewed: Head CT with no acute process. Brain MRI, MRA, carotid ultrasound unremarkable except for 4 mm aneurysm seen below -Neurology was contacted from the ED, -Check echocardiogram still pending -dc IVF and permissive hypertension, HOB flat -Home aspirin increased from 81 mg to 325 per neurology recommendations -LDL 37 and A1c 6.1. Continue statin -PT/OT/ST MRA with 4 mm aneurysm arising right paramedian arising either from the proximal A2 segment or anterior communicating artery. Discussed with neurosurgery, outpatient follow-up and repeat head CT in 6-12 months. Patient to abstain from smoking. Strict BP control Abnormal UA: Patient denies any urinary symptoms. UA appears contaminated with multiple squamous epithelial cells. Follow-up urine culture with mixed jose. Gastroparesis: Chronic, stable. Resume home tube feedings. Continue PPI, bethanechol, Creon. COPD: Chronic, stable. Continue home Breo, Atrovent, albuterol, fluticasone, fexofenadine. Chronic medical conditions are stable at this time and will continue home medications as indicated. DVT prophylaxis: SCDs Discharge Planning Discharge patient to home with home care physical therapy Condition on discharge: Improved Regular Diet as tolerated Ad Mariel activity no driving Rx written: Aspirin full Dose Follow-up with primary care physician in 3 days. Follow up with neurology and neurosurgery Spent over 30 minutes arranging discharge discussed with RN in case management Emigdio Ventura MD Nov 17, 2016 09:29
--- NOTE | 2016-11-17 13:58 | HHI.DCPOC ---
Discharge Care Plan Diagnosis: (1) Right hand weakness (2) Numbness of right hand Your Health Problems Are: Difficulty with ADL Exercise Tolerance Goals to Promote Your Health * To prevent worsening of your condition and complications * To maintain your health at the optimal level Directions to Meet Your Goals Take your medications as prescribed Follow your dietary instruction Follow activity as directed Keep your appointments as scheduled Take your immunizations and boosters as scheduled If your symptoms worsen call your PCP, if no PCP go to Urgent Care Center or Emergency Room Smoking is Dangerous to Your Health. Avoid second hand smoke Call the 24-hour hour crisis hotline for domestic abuse at Emigdio Ventura MD Nov 17, 2016 13:58
--- NOTE | 2016-11-17 13:59 | HHI.FF ---
Face to Face Verification Diagnosis: (1) Right hand weakness (2) Numbness of right hand Physical Therapy Order: Evaluate and Treat, Improve ambulation, Strength and gait training I have seen patient Sarah Zaman on 11/17/16. My clinical findings support the need for the requested home health care services because: Ltd mobility - disease progression I certify that my clinical findings support that this patient is homebound because: Unsteady gait/balance Emigdio Ventura MD Nov 17, 2016 13:59
[2016-11-17] MEDS ORDERED: ASPI1TAB69 PO (16:27)
--- NOTE | 2016-11-17 18:17 | MB ---
cc: VALERI TORRES M.D. DATE OF CONSULTATION: 11/17/2016 REASON FOR CONSULTATION: Right hand numbness, weakness, possible stroke. HISTORY OF PRESENT ILLNESS: The patient is a 61-year-old woman who states that Tuesday night her right hand started getting numb, feeling weak, continued. Hence, she came into the ER yesterday with a chief complaint, not sure if this was neuropathy or stroke. In any case, she does have a history of gastroparesis for which she follows with Dr. Brooks, hyperlipidemia, COPD, reflux, seizures, neuropathy, anxiety, and neuralgia with my partner, Dr. Lorenz. She still states that her hand feels a little weak and numb but better. It does not go up into the arm, above the elbow. She denies it going into her face or the leg. She had a mild headache when she came in, she does not have one now. She last saw Dr. Lorenz's nurse practitioner, Iva, a couple of weeks ago. She does take a baby aspirin daily. PAST MEDICAL HISTORY: 1. Gastroparesis 2. Hyperlipidemia 3. COPD 4. Reflux 5. Seizures 6. Neuropathy 7. Anxiety. PAST SURGICAL HISTORY 1. C-spine surgery 2. Feeding tube. 3. Fundoplication 4. Tonsillectomy HOME MEDICATIONS: 1. Lactulose. 2. Scopolamine transdermal 3. Klonopin. 4. Fexofenadine 5. Lovastatin 6. Creon 7. Tylenol 8. Gabapentin. 9. Nystatin. 10. Pantoprazole. 11. Ventolin. 12. Potassium. 13. Zofran. 14. Flonase. 15. Ellipta inhaler. 16. Baby aspirin. 17. Amitiza. 18. Urecholine. 19. Atrovent. ALLERGIES: BENADRYL DRONABINOL MOTRIN ANTIHISTAMINE ASPIRIN, NAUSEA. CODEINE EPINEPHRINE PHYSICAL EXAMINATION: VITAL SIGNS: Temperature 96.8, pulse 62, respiratory rate 17, blood pressure 132/83, sating 97%. NECK: Supple. I do not appreciate any bruits. HEART: Regular. GENERAL: Awake, alert, oriented, fluent. HEENT: Pupils reactive. Face symmetrical visual burrell full. Motor: She does not have a drift or any significant leg lag. Her soaker helper is weaker. She states that light touch temperature is diminished of the right hand, finger strength is slightly decreased as well. No Thomas's sign. Reflexes are 2 to 3+ upper, 2+ lower. [id number], no past pointing, just a little bit slower, toes are downgoing. Gait is withheld at this time. LABORATORY DATA: Currently CBC: Hematocrit 47.1, platelet count 135,000. Her coag panel is normal. Chemistry: Triglycerides is 38, cholesterol 103, LDL 37, HDL 58. Toxicology screen is negative. UA shows moderate leuko-esterase, 15 to 19 white cells, culture is indicated. Mixed jose. MRI of the brain, there is no evidence of any acute stroke. There is area of chronic atrophy in the anterior left temporal lobe. Carotid ultrasound, negative. Head MRA shows 4 millimeter aneurysm of the right paramedian arising from the proximal A2 or anterior communicating artery. IMPRESSION: Possible TIA in a 61 year-old woman but may be part of her neuropathy. At this point in time, she does have what looks like a probable old stroke, over the anterior left temporal lobe. RECOMMENDATIONS: Recommend continuing her home medications. I would not change anything, have her do some outpatient PT, OT for her hand, continue her on aspirin. If she cannot tolerate a full dose, at least two baby aspirin can be tried. Will have her follow up with Dr. Lorenz in two weeks. She will be following with Dr. Redding for the incidental finding of the aneurysm. Echo was also completed. Report to be transcribed. MD YUNIOR Joseph/TWIN /3:40 PM /5:35 PM
--- NOTE | 2016-11-17 22:00 | EC ---
Study Study Date:11/17/2016 STUDY CONCLUSIONS SUMMARY - Left ventricle: The cavity size was mildly dilated. Wall thickness was normal. Systolic function was normal. The estimated ejection fraction was 65%. Wall motion was normal; there were no regional wall motion abnormalities. - Aortic valve: Trace regurgitation. If LV function is below 40, please consider prescribing an ACEI or ARB or document rationale for non-use. PROCEDURE DATA STUDY STATUS: Elective. Procedure: Transthoracic echocardiography. Image quality was good. Scanning was performed from the parasternal, apical, and subcostal acoustic windows. Study completion: The patient tolerated the procedure well. Transthoracic echocardiography. M-mode, complete 2D, complete spectral Doppler, and color Doppler. Height: Height: 65in. Weight: Weight: 109.8lb. Body mass index: BMI: 18.3kg/m^2. Body surface area: BSA: 1.53m^2. Patient status: Inpatient. CARDIAC ANATOMY LEFT VENTRICLE: The cavity size was mildly dilated. Wall thickness was normal. Systolic function was normal. The estimated ejection fraction was 65%. Wall motion was normal; there were no regional wall motion abnormalities. AORTIC VALVE: Trileaflet; normal thickness leaflets. Doppler: Transvalvular velocity was within the normal range. There was no stenosis. Trace regurgitation. Valve area: 1.47cm^2 (Vmax). Indexed valve area: 0.96cm^2/m^2 (Vmax). AORTA: Aortic root: The aortic root was normal in size. MITRAL VALVE: Structurally normal valve. Doppler: Transvalvular velocity was within the normal range. There was no evidence for stenosis. Trace regurgitation. Valve area by pressure half-time: 2.97cm^2. Indexed valve area by pressure half-time: 1.94cm^2/m^2. Peak gradient: 3mm Hg (D). LEFT ATRIUM: The atrium was normal in size. RIGHT VENTRICLE: The cavity size was normal. Wall thickness was normal. PULMONIC VALVE: Doppler: Transvalvular velocity was within the normal range. There was no evidence for stenosis. No regurgitation. TRICUSPID VALVE: Structurally normal valve. Doppler: Transvalvular velocity was within the normal range. Trace regurgitation. PULMONARY ARTERY: The main pulmonary artery was normal-sized. Systolic pressure was within the normal range. RIGHT ATRIUM: The atrium was normal in size. PERICARDIUM: There was no pericardial effusion. SYSTEMIC VEINS: Inferior vena cava: The vessel was normal in size. Patient weight: 109.8lb _Ejection fraction:_ 65-75% _Fractional shortening:_ 32% up to 5Kg 5-11.5Kg 11.6-22.9Kg 23-45Kg 45-57Kg Aortic Root 7-13 <17 13-22 17-27 17-27 LA diam 6-13 <23 24-38 33-47 37-40 RVID 10-17 7-15 7-15 7-18 8-17 LVIDd 12-22 <32 24-38 33-47 37-40 LVPW 2-4 3-6 5-7 6-8 7-8 IVS 2-4 3-6 5-7 6-8 7-8 BASIC MEASUREMENTS ADULT NORMAL Left ventricle LV internal dimension, ED, chordal *34.9 mm 43-52 level, PLAX LV internal dimension, ES, chordal *21.4 mm 23-38 level, PLAX Fractional shortening, chordal level, 39 % >29 PLAX LV posterior wall thickness, ED 9.65 mm IVS/LVPW ratio, ED 1.03 <1.3 Ventricular septum Septal thickness, ED 9.96 mm Aortic valve Leaflet separation 16 mm 15-26 Left atrium Anterior-posterior dimension 26 mm Anterior-posterior dimension index 1.7 cm/m^2 <2.2 BASIC MEASUREMENTS ADULT NORMAL Aortic valve Leaflet separation 16 mm 15-26 Aorta Root diameter, ED 28 mm 20-37 DOPPLER MEASUREMENTS ADULT NORMAL Aortic valve Peak velocity, S 133 cm/s Valve area, Vmax 1.47 cm^2 Valve area index, Vmax 0.96 cm^2/m^2 Mitral valve Peak E-wave velocity 88.8 cm/s Peak A-wave velocity 60.2 cm/s Pressure half-time 74 ms Peak gradient, D 3 mm Hg Peak E/A ratio 1.5 Valve area, pressure half-time 2.97 cm^2 Valve area index, pressure half-time 1.94 cm^2/m^2 Pulmonic valve Peak velocity, S 95 cm/s LEGEND: Mean values are shown as u=mean value. Asterisk (*) sweeney values outside specified normal range. Prepared and signed by Gisel Zapata [id number]
[2016-11-18] VITALS: BP 146/95; PULSE 65; RESP 20; TEMP 97.2; O2SAT 97
[2016-11-18 04:00] VITALS: BP 148/97; PULSE 70; RESP 18; TEMP 97.5; O2SAT 95
[2016-11-18 08:00] VITALS: BP 147/97; PULSE 89; RESP 20; TEMP 95.7; O2SAT 96
[2016-11-18] MEDS: FLUTICASONE 100 MCG/VILANTEROL 25 MCG INHALER INH SCH (09:11)
[2016-11-18] MEDS: TIOTROPIUM BROMIDE 18 MCG INH INH SCH (09:11)
[2016-11-18] MEDS: ASPIRIN 325 MG TAB PO SCH (09:12)
[2016-11-18] MEDS: FLUTICASONE PROPIONATE 50 MCG/ACT 16 GM NASAL SPRAY EACH NARE SCH (09:12)
[2016-11-18] MEDS: PRAVASTATIN SOD 40 MG TAB PO SCH (09:13)
[2016-11-18] MEDS: GABAPENTIN 100 MG CAP PO SCH (09:13)
[2016-11-18] MEDS: BETHANECHOL CHL 25 MG TAB PO SCH (09:13)
[2016-11-18] MEDS: LORATADINE 10 MG TAB PO SCH (09:14)
[2016-11-18] MEDS: PANTOPRAZOLE SOD 20 MG DELAYED RELEASE TAB PO SCH (09:14)
[2016-11-18] MEDS: SODIUM CHLORIDE 0.9% FLUSH 10 ML FLUSH IV FLUSH SCH (09:14)
[2016-11-18] MEDS: LIPASE/PROTEASE/AMYLASE (12,000/38,000/60,000) CAP PO SCH (09:14)
[2016-11-18] MEDS: clonazePAM 0.5 MG TAB PO SCH (09:14)
--- NOTE | 2016-11-18 09:43 | HHI.PR ---
Subjective Remarks Follow-up right hand weakness. She feeling much stronger and able to use her right hand. No headache. Again patient advised to refrain from tobacco use. Discharge held yesterday because echocardiogram results not available and home health care PT not arrange. Discussed with RN in case management, Objective Vitals Vital Signs Date Time Temp Pulse Resp B/P Pulse Ox O2 Delivery O2 Flow Rate FiO2 11/18/16 08:00 95.7 89 20 147/97 96 11/18/16 04:00 97.5 70 18 148/97 95 11/18/16 00:00 97.2 65 20 146/95 97 11/17/16 23:00 61 11/17/16 20:00 96.5 59 20 147/93 97 11/17/16 19:27 95 Nasal Cannula 2.00 11/17/16 12:00 96.9 58 19 136/81 93 11/17/16 11:00 94 Nasal Cannula 2.00 I/O 11/17/16 11/17/16 11/17/16 11/18/16 11/18/16 11/18/16 07:00 15:00 23:00 07:00 15:00 23:00 Intake Total 575 ml 630 ml 240 ml Output Total 800 ml 950 ml Balance -225 ml -950 ml 630 ml 240 ml Intake Oral 630 ml 240 ml IV Total 575 ml 0 ml 0 ml Output Urine Total 800 ml 950 ml # Voids 3 1 # Bowel Movements 0 1 0 Result Diagram: 11/17/16 0555 11/17/16 0555 Imaging Last Impressions Head CT 11/16/16 1136 Signed Impressions: Service Date/Time: Wednesday, November 16, 2016 11:52 - CONCLUSION: Negative noncontrast CT brain. Bentley Godoy MD Chest X-Ray 11/16/16 1136 Signed Impressions: Service Date/Time: Wednesday, November 16, 2016 11:47 - CONCLUSION: 1. No acute focal pulmonary infiltrate or pulmonary vascular congestion. Natalio Del Angel MD Head Magnetic Resonance Angiography 11/16/16 0000 Signed Impressions: Service Date/Time: Wednesday, November 16, 2016 14:39 - CONCLUSION: 4 mm aneurysm arising right paramedian arising either from the proximal A2 segment or anterior communicating artery. Bentley Godoy MD Carotid Artery Ultrasound 11/16/16 0000 Signed Impressions: Service Date/Time: Wednesday, November 16, 2016 15:01 - CONCLUSION: Negative exam. Kelechi Mallory MD Brain MRI 11/16/16 0000 Signed Impressions: Service Date/Time: Wednesday, November 16, 2016 14:39 - CONCLUSION: 1. No evidence of acute stroke or acute hemorrhage. 2. Focal area of chronic cortical atrophy in the anterior left temporal lobe. Bentley Godoy MD Objective Remarks GENERAL: Well-developed well-nourished. In no acute distress. SKIN: Warm and dry. No lesions noted. HEENT: Normocephalic. Pupils equal and round. Mucous membranes pink and moist. CARDIOVASCULAR: Regular rate and rhythm. No murmur appreciated. RESPIRATORY: No accessory muscle use. Clear to auscultation. Breath sounds equal bilaterally. GASTROINTESTINAL: Abdomen soft, non-tender, nondistended. Bowel sounds x4. PEG tube in place. MUSCULOSKELETAL: No obvious deformities. No clubbing or cyanosis. No edema. NEUROLOGICAL: Awake and alert. Normal speech. Improved Right upper extremity weakness no pronator drift. No facial asymmetry, cranial nerves grossly intact. PSYCHIATRIC: Appropriate mood and affect; insight and judgment normal. Procedures Non- A/P Problem List: (1) Right hand weakness ICD Code: R29.898 Status: Acute (2) Numbness of right hand ICD Code: R20.0 Status: Acute Assessment and Plan 61-year-old female with a past medical history of gastroparesis, HLD, COPD, GERD , seizures, neuropathy, anxiety who presented with right upper extremity weakness and numbness Right-sided weakness and paresthesias with headache. TIA versus complicated migraine. Improved Imaging reviewed: Head CT with no acute process. Brain MRI, MRA, carotid ultrasound unremarkable except for 4 mm aneurysm seen below -Neurology was contacted from the ED, -Unremarkable echocardiogram -dc IVF and permissive hypertension, HOB flat -Home aspirin increased from 81 mg to 162 per neurology recommendations -LDL 37 and A1c 6.1. Continue statin -PT/OT/ST -Tobacco cessation MRA with 4 mm aneurysm arising right paramedian arising either from the proximal A2 segment or anterior communicating artery. Discussed with neurosurgery, outpatient follow-up and repeat head CT in 6-12 months. Patient to abstain from smoking. Strict BP control Abnormal UA: Patient denies any urinary symptoms. UA appears contaminated with multiple squamous epithelial cells. Follow-up urine culture with mixed jose. Gastroparesis: Chronic, stable. Resume home tube feedings. Continue PPI, bethanechol, Creon. COPD: Chronic, stable. Continue home Breo, Atrovent, albuterol, fluticasone, fexofenadine. Chronic medical conditions are stable at this time and will continue home medications as indicated. DVT prophylaxis: SCDs Discharge Planning Stable for discharge Emigdio Ventura MD Nov 18, 2016 09:43
--- NOTE | 2016-11-18 11:46 | HHI.DS ---
Discharge Summary Admission Date Nov 16, 2016 at 13:31 Discharge Date: Nov 18, 2016 Admitting Diagnosis right hand weakness and numbness (1) Right hand weakness ICD Code: R29.898 Diagnosis: Principal (2) Numbness of right hand ICD Code: R20.0 Diagnosis: Principal Procedures None Brief History - From Admission 61-year-old female with a past medical history of gastroparesis, HLD, COPD, GERD , seizures, neuropathy, anxiety who presented with right upper extremity weakness and numbness. Patient states that last night she was having right hand weakness and tingling. This morning she was having difficulty with coordination and holding onto things. She states she noticed that her right leg was also weak after she came to the ED. He states she's has a mild headache. She states that recently she has been having occasional problems with vision focus. She denies any history of atrial fibrillation. She denies any fevers. She does take a baby aspirin every day. She follows with Dr. Lorenz with neurology for neuropathy and history of seizures. Her at bedside states that her speech is at baseline. She does normally eat by mouth and by feeding tube, has not tried to eat by mouth yet, but would like to try. She normally ambulates with a rolling walker. She denies any urinary symptoms. She states that she had a brain MRI recently with Dr. Lorenz, he told her he saw an old stroke on it. CBC/BMP: 11/17/16 0555 11/17/16 0555 Significant Findings Laboratory Tests Test 11/16/16 11/16/16 11/17/16 11:30 13:45 05:55 Red Blood Count 5.44 MIL/MM3 (4.00-5.30) Hemoglobin 16.0 GM/DL (11.6-15.3) Hematocrit 49.5 % 47.1 % (35.0-46.0) (35.0-46.0) Monocytes (%) (Auto) 8.1 % (0.0-8.0) 12.7 % (0.0-8.0) Eosinophils (%) (Auto) 4.7 % (0.0-4.0) 8.0 % (0.0-4.0) Carbon Dioxide Level 32.3 MEQ/L 33.4 MEQ/L (21.0-32.0) (21.0-32.0) Estimat Glomerular Filtration 79 ML/MIN (>89) Rate Hemoglobin A1c 6.1 % (4.3-6.0) Calcium Level 8.3 MG/DL (8.5-10.1) Troponin I LESS THAN 0.02 NG/ML (0.02-0.05) Albumin 3.2 GM/DL (3.4-5.0) Urine Leukocyte Esterase MOD (NEG) Urine WBC 15-19 /hpf (0-5) Urine WBC Clumps OCC (NONE) Urine Squamous Epithelial 6-8 /hpf (0-5) Cells Urine Bacteria MOD /hpf (NONE) Platelet Count 135 TH/MM3 (150-450) Triglycerides Level 38 MG/DL (42-150) Cholesterol Level 103 MG/DL (120-200) Imaging Last Impressions Head CT 11/16/16 1136 Signed Impressions: Service Date/Time: Wednesday, November 16, 2016 11:52 - CONCLUSION: Negative noncontrast CT brain. Bentley Godoy MD Chest X-Ray 11/16/16 1136 Signed Impressions: Service Date/Time: Wednesday, November 16, 2016 11:47 - CONCLUSION: 1. No acute focal pulmonary infiltrate or pulmonary vascular congestion. Natalio Del Angel MD Head Magnetic Resonance Angiography 11/16/16 0000 Signed Impressions: Service Date/Time: Wednesday, November 16, 2016 14:39 - CONCLUSION: 4 mm aneurysm arising right paramedian arising either from the proximal A2 segment or anterior communicating artery. Bentley Godoy MD Carotid Artery Ultrasound 11/16/16 0000 Signed Impressions: Service Date/Time: Wednesday, November 16, 2016 15:01 - CONCLUSION: Negative exam. Kelechi Mallory MD Brain MRI 11/16/16 0000 Signed Impressions: Service Date/Time: Wednesday, November 16, 2016 14:39 - CONCLUSION: 1. No evidence of acute stroke or acute hemorrhage. 2. Focal area of chronic cortical atrophy in the anterior left temporal lobe. Bentley Godoy MD PE at Discharge GENERAL: Well-developed well-nourished. In no acute distress. SKIN: Warm and dry. No lesions noted. HEENT: Normocephalic. Pupils equal and round. Mucous membranes pink and moist. CARDIOVASCULAR: Regular rate and rhythm. No murmur appreciated. RESPIRATORY: No accessory muscle use. Clear to auscultation. Breath sounds equal bilaterally. GASTROINTESTINAL: Abdomen soft, non-tender, nondistended. Bowel sounds x4. PEG tube in place. MUSCULOSKELETAL: No obvious deformities. No clubbing or cyanosis. No edema. NEUROLOGICAL: Awake and alert. Normal speech. Improved Right upper extremity weakness no pronator drift. No facial asymmetry, cranial nerves grossly intact. PSYCHIATRIC: Appropriate mood and affect; insight and judgment normal. Hospital Course 61-year-old female with a past medical history of gastroparesis, HLD, COPD, GERD , seizures, neuropathy, anxiety who presented with right upper extremity weakness and numbness Right-sided weakness and paresthesias with headache. TIA versus complicated migraine. Improved Imaging reviewed: Head CT with no acute process. Brain MRI, MRA, carotid ultrasound unremarkable except for 4 mm aneurysm seen below -Neurology was contacted from the ED, -Unremarkable echocardiogram -dc IVF and permissive hypertension, HOB flat -Home aspirin increased from 81 mg to 162 per neurology recommendations -LDL 37 and A1c 6.1. Continue statin -PT/OT/ST -Tobacco cessation MRA with 4 mm aneurysm arising right paramedian arising either from the proximal A2 segment or anterior communicating artery. Discussed with neurosurgery, outpatient follow-up and repeat head CT in 6-12 months. Patient to abstain from smoking. Strict BP control Abnormal UA: Patient denies any urinary symptoms. UA appears contaminated with multiple squamous epithelial cells. Follow-up urine culture with mixed jose. Gastroparesis: Chronic, stable. Resume home tube feedings. Continue PPI, bethanechol, Creon. COPD: Chronic, stable. Continue home Breo, Atrovent, albuterol, fluticasone, fexofenadine. Chronic medical conditions are stable at this time and will continue home medications as indicated. DVT prophylaxis: SCDs Pt Condition on Discharge: Stable Discharge Disposition: Disch w/ Home Health Serv Discharge Time: > 30 minutes Discharge Instructions DIET: Follow Instructions for: As Tolerated, No Restrictions, On Tube Feeding Activities you can perform: Regular-No Restrictions Activities to Avoid: Driving Follow up Referrals: Neurology - 1 Week Neurosurgery - 1 Week PCP Follow-up - 2-3 Days SNF/GROUP HOME/ with [facility] at Home Changed Medications: Aspirin (Aspirin) 81 Mg Tabdr 162 MG PO DAILY Prevent Blood Clot #60 TAB (Changed from: 81 MG) Continued Medications: Acetaminophen (Tylenol Extra Strength) 500 Mg Tab 500 MG PO Q4-6H PRN PAIN Ref 0 TAB Albuterol 18 GM Inh (Ventolin Hfa 18 GM Inh) 90 Mcg/Act Aer 2 PUFF INH Q4H PRN SHORTNESS OF BREATH #1 Ref 0 INHALER Baclofen (Baclofen) 20 Mg Tab 20 MG PO QID Muscle Spasm Ref 0 TAB Bethanechol (Urecholine) 25 Mg Tab 25 MG PO TID Urinary Symptom Managemen Ref 0 TAB Clonazepam (Clonazepam) 0.5 Mg Tab 0.5 MG PO BID #60 Ref 0 TAB Fexofenadine (Fexofenadine) 180 Mg Tab 180 MG PO DAILY Allergy Management #30 Ref 0 TAB Fluticasone Nasal [place] (Flonase Allergy Relief Children Nasal [place]) 50 Mcg/ Act [place] 1 SPRAY EACH NARE DAILY 50 mcg/spray Allergy Management #1 Ref 0 BOTTLE Fluticasone-Vilanterol Inh (Breo Ellipta Inh) 100-25 Mcg/Act Inh 1 PUFF INH DAILY Use daily at the same time. #1 Ref 0 INHALER Gabapentin (Gabapentin) 100 Mg Cap 100 MG PO BID #60 Ref 0 CAP Ipratropium HFA 12.9 GM Inh (Atrovent HFA 12.9 GM Inh) 17 Mcg/Act Aer 2 PUFF INH QID #1 Ref 0 INHALER Lactulose (Encephalopathy) Liq (Lactulose Liq) 19 Gm/15 Ml Soln Lovastatin (Lovastatin) 40 Mg Tab 40 MG PO DAILY Cholesterol Management #30 Ref 0 TAB Lubiprostone (Amitiza) 24 Mcg Cap 24 MG PO BID Constipation Ref 0 CAP Nystatin Liq (Nystatin Liq) 100,000 unit/ml Susp 5 ML SWISH-SWAL QID Infection Ref 0 ML Ondansetron (Zofran) 8 Mg Tab 4 MG PO TID PRN NAUSEA Ref 0 TAB Pancrelipase (Creon) 12,000-38,000-60,000 Units Cap 1 CAP PO TIDPC Digestive Aid #90 Ref 0 CAP Pantoprazole (Pantoprazole) 20 Mg Tab 20 MG PO DAILY Reflux #30 Ref 0 TAB Potassium Chloride ER (Potassium Chloride ER) 20 Meq Tab 99 MEQ PO BID Electrolyte Replacement #60 Ref 0 TAB Scopolamine (Transderm-Scop) 1 Mg/3 Days Dis ([Domperidone]) 10 MG PO TIDAC Nausea Emigdio Ventura MD Nov 18, 2016 11:46
--- NOTE | 2016-11-19 20:24 | PD.CONS ---
History of Present Illness Service Neurosurgery Consult Requested By Medicine service Reason for Consult Aneurysm Primary Care Physician Shannan Knowles Do, MD Diagnoses: History of Present Illness Pleasant 61-year-old female admitted to the hospital after developing numbness and weakness in her right upper extremity this past Tuesday evening. No history of previous CVA or TIA. She does have a history of neuropathy and seizures, followed as an outpatient by neurology. No complaint of any recent or remote severe headaches. No recent neck pain. No blurred vision, diplopia, visual loss. No significant chronic gait deficit. Review of Systems Constitutional: COMPLAINS OF: Fatigue, DENIES: Weight loss, Dizziness Eyes: DENIES: Blurred vision, Diplopia Ears, nose, mouth, throat: DENIES: Vertigo Respiratory: DENIES: Shortness of breath Cardiovascular: DENIES: Chest pain, Palpitations Gastrointestinal: DENIES: Abdominal pain, Nausea Musculoskeletal: DENIES: Joint pain, Muscle aches, Back pain, Neck pain Hematologic/lymphatic: DENIES: Bruising Neurologic: DENIES: Abnormal gait, Headache Psychiatric: DENIES: Confusion Past Family Social History Allergies: Coded Allergies: Benadryl (Verified Allergy, Severe, UNABLE TO BREATHE, 11/16/16) Dronabinol (Unverified Allergy, Severe, confusions paranoid seizure like activity, 11/16/16) Motrin (Verified Allergy, Severe, AFFECTS MY STOMACH, 11/16/16) ANTIHISTAMINE DRUGS (Verified Allergy, Intermediate, 11/16/16) difficulty breathing Aspirin (Verified Allergy, Intermediate, NAUSEA, 11/16/16) do not take a full strength, can only take a baby aspirin and enteric coated. Codeine (Verified Allergy, Intermediate, 11/16/16) massive headaches Epinephrine (Verified Allergy, Unknown, PT DOESN'T RECALL HAVING ALLERGY/ ADVERSE, 11/16/16) Past Medical History History of COPD GERD Seizures Neuropathy Hyperlipidemia Gastroparesis Past Surgical History Previous cervical spine surgery Feeding tube for gastroparesis Tonsillectomy Fundoplication Reported Medications Reported Meds & Active Scripts Active Aspirin 81 Mg Tabdr 162 Mg PO DAILY Reported Lactulose Liq (Lactulose (Encephalopathy) Liq) 19 Gm/15 Ml Soln Transderm-Scop (Scopolamine) 1 Mg/3 Days Dis Clonazepam 0.5 Mg Tab 0.5 Mg PO BID Fexofenadine (Fexofenadine HCl) 180 Mg Tab 180 Mg PO DAILY Lovastatin 40 Mg Tab 40 Mg PO DAILY Creon (Amylase/Lipase/Protease) 12,000-38,000-60,000 Units Cap 1 Cap PO TIDPC Tylenol Extra Strength (Acetaminophen) 500 Mg Tab 500 Mg PO Q4-6H PRN Gabapentin 100 Mg Cap 100 Mg PO BID Nystatin Liq 100,000 unit/ml Susp 5 Ml SWISH-SWAL QID Pantoprazole (Pantoprazole Sodium) 20 Mg Tab 20 Mg PO DAILY Ventolin Hfa 18 GM Inh (Albuterol Sulfate) 90 Mcg/Act Aer 2 Puff INH Q4H PRN Potassium Chloride ER (Potassium Chloride) 20 Meq Tab 99 Meq PO BID Zofran (Ondansetron HCl) 8 Mg Tab 4 Mg PO TID PRN Flonase Allergy Relief Children Nasal [place] (Fluticasone Nasal [place]) 50 Mcg/ Act [place] 1 [place] EACH NARE DAILY 50 mcg/spray Breo Ellipta Inh (Fluticasone/Vilanterol) 100-25 Mcg/Act Inh 1 Puff INH DAILY Use daily at the same time. Baclofen 20 Mg Tab 20 Mg PO QID Amitiza (Lubiprostone) 24 Mcg Cap 24 Mg PO BID Urecholine (Bethanechol Chloride) 25 Mg Tab 25 Mg PO TID Atrovent HFA 12.9 GM Inh (Ipratropium S [place]) 17 Mcg/Act Aer 2 Puff INH QID [Domperidone] 10 Mg PO TIDAC Family History Negative stroke, aneurysm Social History Does not smoke cigarettes or drink alcohol Physical Exam Physical Exam GENERAL: This is a well-nourished, well-developed patient, in no apparent distress. SKIN: No rashes, ecchymoses or lesions. Cool and dry. HEAD: Atraumatic. Normocephalic. No temporal or scalp tenderness. EYES: Sclerae are clear and nonicteric ENT: No oropharyngeal lesions midline. Airway patent. NECK: Trachea midline. No JVD or lymphadenopathy. Supple, nontender, no meningeal signs. CARDIOVASCULAR: Regular rate and rhythm without murmurs, gallops, or rubs. RESPIRATORY: Clear to auscultation. Breath sounds equal bilaterally. No wheezes , rales, or rhonchi. GASTROINTESTINAL: Abdomen soft, non-tender, nondistended. No hepato-splenomegaly , or palpable masses. No guarding. MUSCULOSKELETAL: Extremities without clubbing, cyanosis, or edema. No joint tenderness, effusion, or edema noted. No calf tenderness. Negative Homans sign bilaterally. NEUROLOGICAL: Awake and alert Oriented X 3 Speech is clear Conversant and appropriate Follow simple commands well Answers questions appropriately Reasonable judgment and insight Recent and remote memory are intact No evidence of anxiety or depression Pupils are equal and reactive to accommodation. Extra-ocular movements, visual burrell to confrontation, facial sensorimotor, tongue, palate, sternocleidomastoid testing, hearing to finger rub testing, and bilateral shoulder shrug are all intact. Sensation is intact to light touch in all extremities except for possible mild decrease diffuse in the right versus left hand Strength normal major flexion and extension groups in the left upper and lower extremities . She has mild decreased right hand intrinsics. Appears to have reasonable strength in right lower extremity major flexion and extension groups. Ivan's absent bilaterally No ankle clonus Plantar responses absent bilateral Fine motor movements are mildly decreased in the right upper extremity Laboratory Date/Time Procedure Status Source Growth 11/16/16 13:45 Urine Culture - Final Complete Urine Clean Catch 50-100,000 CFU/ML MIXED ERIKA... Result Diagram: 11/17/16 0555 11/17/16 0555 Imaging 11/16/16 CT scan of the head as well as MRI and MRA of the brain images are reviewed by the undersigned. Agree with findings as noted below: Head CT 11/16/16 1136 Signed Impressions: Service Date/Time: Wednesday, November 16, 2016 11:52 - CONCLUSION: Negative noncontrast CT brain. Bentley Godoy MD Chest X-Ray 11/16/16 1136 Signed Impressions: Service Date/Time: Wednesday, November 16, 2016 11:47 - CONCLUSION: 1. No acute focal pulmonary infiltrate or pulmonary vascular congestion. Natalio Del Angel MD Head Magnetic Resonance Angiography 11/16/16 0000 Signed Impressions: Service Date/Time: Wednesday, November 16, 2016 14:39 - CONCLUSION: 4 mm aneurysm arising right paramedian arising either from the proximal A2 segment or anterior communicating artery. Bentley Godoy MD Carotid Artery Ultrasound 11/16/16 0000 Signed Impressions: Service Date/Time: Wednesday, November 16, 2016 15:01 - CONCLUSION: Negative exam. Kelechi Mallory MD Brain MRI 11/16/16 0000 Signed Impressions: Service Date/Time: Wednesday, November 16, 2016 14:39 - CONCLUSION: 1. No evidence of acute stroke or acute hemorrhage. 2. Focal area of chronic cortical atrophy in the anterior left temporal lobe. Bentley Godoy MD Assessment and Plan Assessment and Plan Impression: 1. 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 No history or symptoms suggestive of aneurysmal subarachnoid hemorrhage. Recommendations: Findings were discussed with the patient. Options of endovascular treatment versus observation discussed. She is in agreement with initial rn triage treatment with follow-up imaging. Plan follow-up CT angiogram of the brain initially in approximately 6-9 months. Signs and symptoms to watch for discussed. Advised no smoking and proper blood pressure control. Control anxiety. Elvis Gonzalez MD Nov 19, 2016 20:23
== END 2016-11-18 10:15 | disposition home or self-care (01) ==
LOC: PHED 11:20 → PHEDA 13:31 → PH3B 14:39
PROVIDERS: ADMIT Internal Medicine; ATTEND Internal Medicine
DX: R53.1 Weakness (principal); I67.1 Cerebral aneurysm, nonruptured; R20.2 Paresthesia of skin; G62.9 Polyneuropathy, unspecified; R56.9 Unspecified convulsions; J45.909 Unspecified asthma, uncomplicated; I49.9 Cardiac arrhythmia, unspecified; J44.9 Chronic obstructive pulmonary disease, unspecified; Z86.73 Personal history of transient ischemic attack (TIA), and cerebral infarction without residual deficits; K21.9 Gastro-esophageal reflux disease without esophagitis; R13.10 Dysphagia, unspecified; I10 Essential (primary) hypertension; M19.90 Unspecified osteoarthritis, unspecified site; F17.210 Nicotine dependence, cigarettes, uncomplicated; Z79.899 Other long term (current) drug therapy; K31.84 Gastroparesis; E78.5 Hyperlipidemia, unspecified; R29.898 Other symptoms and signs involving the musculoskeletal system; R20.0 Anesthesia of skin; F41.9 Anxiety disorder, unspecified
CPT/HCPCS: 70450; 70544; 70551; 71010; 80048; 80053; 80061; 80307; 81001; 82550; 82948; 83036; 84484; 85025; 85610; 85730; 87086; 92526; 92610; 93005; 93306; 93880; 97110; 97116; 97162; 97167; 99285; G0378; G8987; G8988; G8996; G8997; G8998; J7030

== ENCOUNTER 2016-11-24 07:28 | Day surgery (SDC) | payer OTHER ==
[~2016-11-24] VITALS: Ht 165.1 cm; Wt 49.5 kg
[~2016-11-24 07:28] MED LIST changes: +CLON0.5T PO; +CREON12 PO; +FEXO180T PO; +LACT10SO27; +LOVA40TA PO; +SCOP1PAT2
[2016-11-24 08:01] VITALS: BP 122/74; PULSE 84; RESP 18; TEMP 97.8; O2SAT 93
[2016-11-24] MEDS ORDERED: SODIUM CHLOR 0.9% 1000 ML INJ 1,000 ML IV SCH (08:15)
[2016-11-24] MEDS ORDERED: MIDAZOLAM HCL 2 MG/2 ML VIAL ONE (08:46)
[2016-11-24] MEDS ORDERED: IOHEXOL 350 MG/ML 50 ML BTL (for RAD DIAG) G-TUBE ONE (10:09)
[2016-11-24 10:10] VITALS: BP 124/72; PULSE 60; RESP 20; TEMP 97.5; O2SAT 93
--- NOTE | 2016-11-24 10:21 | PD.RAD ---
Post Procedure Progress Note Pre Procedure Diagnosis: (1) Gastroparesis (2) Damaged/Nonfunctional feeding tube Post Procedure Diagnosis: (1) Gastroparesis (2) Damaged/Nonfunctional feeding tube Procedure Date: Nov 24, 2016 Supervising Radiologist: Kelechi Mallory Proceduralist/Assist: Evangelist Echeverria, RT(R), Janki Ashford RT(R) Anesthesia: Analgesia, Conscious Sedation Plan of Activity Patient to Unit: ROPU Patient Condition: Good See PACS Report for procedural detail/treatment Feeding Tube Gastro/Jejunostomy Exchange (Existing tube leaking) Lithuanian: 22 Findings: Existing tube pulled back into gastric lumen. Wire directed back into duodenum/ jejeunum and new transgastric-J placed Kelechi Mallory MD Nov 24, 2016 10:21
[2016-11-24 10:25] VITALS: BP 121/72; PULSE 58; RESP 20; O2SAT 92
[2016-11-24 10:55] VITALS: BP 145/84; PULSE 66; RESP 20; O2SAT 95
[2016-11-24 11:25] VITALS: BP 140/83; PULSE 61; RESP 20; O2SAT 95
[2016-11-24 11:55] VITALS: BP 137/74; PULSE 65; RESP 20; O2SAT 96
--- NOTE | 2016-11-24 13:08 | RADRPT ---
EXAM DATE/TIME: 11/24/2016 09:29 [facility] COMPARISON: No previous studies available for comparison. INDICATIONS : Patient with history of gastroparesis in need of exchange of GJ tube. MEDICAL HISTORY : Gastroparesis, HTN, CAD, HLD, COPD, Asthma, GERD, CVA, Emphysema, Dysphagia, Chronic low back pain SURGICAL HISTORY : GJ tube placement, Colonoscopy, Julian's fundoplication, C4 and C5 surgery ENCOUNTER: Subsequent ACUITY: 4 - 6 days PAIN SCORE: 0/10 FLUORO TIME: 10.5 minutes IMAGE SERIES: 3 SEDATION TIME: 30 minutes CONTRAST: 30 cc Omnipaque (iohexol) 350 MEDICATION(S): 1.) 2 mg midazolam (Versed) IV 2.) 100 mcg Fentanyl (Sublimaze) IV DEVICE(S): 1.) 22 [place] Transgastric tube PROCEDURE : 1. Fluoroscopically guided gastrojejunostomy tube exchange. 2. Conscious sedation with continuous EKG and oximetry monitoring. The risks, benefits and alternatives to the procedure were explained and verbal and written consent w as obtained. The site was prepped in sterile fashion. Full sterile technique was used, including ca p, mask, sterile gloves and gown and a large sterile sheet. Hand hygiene and 2% chlorhexidine and/or betadine/alcohol prep was utilized per protocol for cutaneous antisepsis. The skin and subcutaneous tissues were infiltrated with local anesthetic solution. Amusement Ride Inspector image demonstrated the damage tube to be curled in the gastric lumen with the tip in the region of the duodenal bulb. With fluoroscopic guidance a guidewire was passed through the previous gastrojejunostomy tube and a f resh tube was placed over the guidewire. The balloon was inflated with appropriate volume of saline. Injection of positive contrast demonstrates good position of the gastric and jejunal lumens of the tube. Conscious sedation was performed with the prescribed dosages and duration as above in the presence of an independent trained radiology nurse to assist in the monitoring of the patient. EKG and oximetry remained stable throughout the procedure. The patient tolerated the procedure well and there were n o complications. The patient was sent to post anesthesia recovery in stable condition. CONCLUSION: Uncomplicated gastrojejunostomy tube exchange as above. Please note the existing, damaged had pulled back and was coiled in the gastric lumen with the tip at the duodenal bulb . Kelechi Mallory MD on November 24, 2016 at 12:26 Board Certified Radiologist. This report was verified electronically.
== END 2016-11-24 12:10 | disposition home or self-care (01) ==
LOC: HROP 07:28 → HRIP 07:35 → HROP 12:10
PROVIDERS: ATTEND Family Medicine
DX: K94.23 Gastrostomy malfunction (principal); K31.84 Gastroparesis; G89.29 Other chronic pain; K21.9 Gastro-esophageal reflux disease without esophagitis; J44.9 Chronic obstructive pulmonary disease, unspecified; J45.909 Unspecified asthma, uncomplicated; E78.5 Hyperlipidemia, unspecified; I25.10 Atherosclerotic heart disease of native coronary artery without angina pectoris; I10 Essential (primary) hypertension; Z86.73 Personal history of transient ischemic attack (TIA), and cerebral infarction without residual deficits
CPT/HCPCS: 49452; C1769; C1874; C1887; J2250; J3010; J7030; Q9967

== ENCOUNTER 2017-02-18 08:25 | Day surgery (SDC) | payer OTHER ==
[~2017-02-18] VITALS: Ht 165.1 cm; Wt 50.0 kg
[~2017-02-18 08:25] MED LIST changes: -SCOP1PAT2; +SCOP1PAT2 T-DERMAL
[2017-02-18 08:55] VITALS: BP 138/80; PULSE 62; RESP 20; TEMP 97.7; O2SAT 90
[2017-02-18] MEDS ORDERED: ceFAZolin 2 GM PREMIX 50 ML - gastrostomy and jejunostomy initial insertion IV SCH (09:15)
[2017-02-18] MEDS ORDERED: LACT10SO48 PO (09:17)
[2017-02-18] MEDS ORDERED: CLOT10TR PO (09:17)
[2017-02-18] MEDS ORDERED: PEPP90CA PO (09:17)
[2017-02-18] MEDS ORDERED: FLUC10SU PO (09:17)
[2017-02-18] MEDS ORDERED: FDGARD PO (09:17)
[2017-02-18] MEDS ORDERED: LACT70CA PO (09:17)
[2017-02-18] MEDS ORDERED: ASPI81TA2 PO (09:17)
[2017-02-18] MEDS ORDERED: ACET-822 PO (09:17)
--- NOTE | 2017-02-18 10:34 | PD.RAD ---
Post Procedure Progress Note Pre Procedure Diagnosis: (1) Damaged/Nonfunctional feeding tube Post Procedure Diagnosis: (1) Damaged/Nonfunctional feeding tube Procedure Date: Feb 18, 2017 Supervising Radiologist: Bentley Estrada JR Proceduralist/Assist: Ruthie Reyes, RT(R)(), Meenakshi Baeza RT(R) Anesthesia: Other Plan of Activity Patient to Unit: ROPU Patient Condition: Good See PACS Report for procedural detail/treatment Feeding Tube Gastro/Jejunostomy Exchange [place]: 22 Findings: Original tube with weakness in wall and fungal elements. Replaced with new GJ tube. Jr. Sean,Bentley Dickerson MD Feb 18, 2017 10:34
[2017-02-18] MEDS ORDERED: IOHEXOL 350 MG/ML 50 ML BTL (for RAD DIAG) J-TUBE ONE (10:52)
--- NOTE | 2017-02-18 11:14 | RADRPT ---
EXAM DATE/TIME: 02/18/2017 09:45 [facility] COMPARISON: No previous studies available for comparison. INDICATIONS : Patient with a history of gastroparesis, needs new GJ tube. Current GJ tube has a weakening in the wa ll as well as fungal elements scattered throughout the tube. MEDICAL HISTORY : Gastroparesis, HTN, CAD, HLD, COPD, Asthma, GERD, CVA, Emphysema, Dysphagia, Chronic low back pain SURGICAL HISTORY : GJ tube placement, Colonoscopy, Julian's fundoplication, C4 and C5 surgery ENCOUNTER: Subsequent ACUITY: 3 months PAIN SCORE: 0/10 FLUORO TIME: 0.9 minutes IMAGE SERIES: 2 CONTRAST: 20 cc Omnipaque (iohexol) 350 DEVICE(S): 1.) 22 [place] Transgastric tube PROCEDURE : 1. Fluoroscopically guided gastrojejunostomy tube exchange. The risks, benefits and alternatives to the procedure were explained and verbal and written consent w as obtained. The site was prepped in sterile fashion. Full sterile technique was used, including ca p, mask, sterile gloves and gown and a large sterile sheet. Hand hygiene and 2% chlorhexidine and/or betadine/alcohol prep was utilized per protocol for cutaneous antisepsis. The skin and subcutaneous tissues were infiltrated with local anesthetic solution. With fluoroscopic guidance a guidewire was passed through the previous gastrojejunostomy tube and a f resh tube was placed over the guidewire. The balloon was inflated with appropriate volume of saline. Injection of positive contrast demonstrates good position of the gastric and jejunal lumens of the tube. The patient tolerated the procedure well and there were no complications. The patient was sent to pos t anesthesia recovery in stable condition. CONCLUSION: Uncomplicated gastrojejunostomy tube exchange as above. Bentley Estrada Jr., MD on February 18, 2017 at 11:11 Board Certified Radiologist. This report was verified electronically.
== END 2017-02-18 11:30 | disposition home or self-care (01) ==
LOC: HROP 08:25 → HRIP 08:30 → HROP 11:30
PROVIDERS: ATTEND Internal Medicine Gastroenterology
DX: K94.29 Other complications of gastrostomy (principal); K31.84 Gastroparesis; I10 Essential (primary) hypertension; I25.10 Atherosclerotic heart disease of native coronary artery without angina pectoris; E78.5 Hyperlipidemia, unspecified; J44.9 Chronic obstructive pulmonary disease, unspecified; J45.909 Unspecified asthma, uncomplicated; K21.9 Gastro-esophageal reflux disease without esophagitis; M54.5 Low back pain; G89.29 Other chronic pain; Z86.73 Personal history of transient ischemic attack (TIA), and cerebral infarction without residual deficits
CPT/HCPCS: 49452; C1769; C1874; Q9967

== ENCOUNTER → 2017-03-09 | Outpatient (CLI) | payer OTHER ==
[~2017-03-09] MED LIST changes: -ACET-703 PO; +ACET-822 PO; -ASPI1TAB69 PO; +ASPI81TA2 PO; +CLOT10TR PO; +DIATRIZOATE MEGLUM/DIATRIZOATE SOD 120 ML BTL (for RAD DIAG) J-TUBE ONE; +FDGARD PO; +FLUC10SU PO; -LACT10SO27; +LACT10SO48 PO; +LACT70CA PO; -NYST1000 SWISH-SWAL; +PEPP90CA PO; -POTA-163 PO
--- NOTE | 2017-03-09 12:19 | RADRPT ---
EXAM DATE/TIME: 03/09/2017 10:55 [facility] COMPARISON: CHANGE OF GJ-TUBE CATHETER, February 18, 2017, 9:45. INDICATIONS : Evaluate J-tube with gastrograffin. Patient c/o pain and abdomen distention since new tube was placed . MEDICAL HISTORY : Gastroparesis.Gastroparesis, HTN, CAD, HLD, COPD, Asthma, GERD, CVA,Dysphagia, Chronic low back pain, Emphysema, SURGICAL HISTORY : J tube placed 1 month ago.GJ tube placement, Colonoscopy, Julian's fundoplication, c4 and c5 surgery. ENCOUNTER: Initial ACUITY: 3 weeks PAIN SCORE: 5/10 LOCATION: Bilateral Abdomen. FINDINGS: Supine view of the abdomen was performed following injection of contrast into the jejunal port of a g astrojejunostomy which was recently exchanged. There is normal opacification of the proximal small bowel without evidence of leakage or significant distention. CONCLUSION: Normal-appearing position of jejunostomy tube without evidence of fracture and distal leakage or dist ention. Magdaleno Meadows MD on March 09, 2017 at 12:14 Board Certified Radiologist. This report was verified electronically.
== END ==
LOC: HRAD 10:29
PROVIDERS: ATTEND Internal Medicine Gastroenterology
DX: R14.0 Abdominal distension (gaseous) (principal); R10.9 Unspecified abdominal pain; Z93.1 Gastrostomy status
CPT/HCPCS: 74000; Q9963

== ENCOUNTER 2017-06-17 08:38 | Day surgery (SDC) | payer OTHER ==
[~2017-06-17] VITALS: Ht 165.1 cm; Wt 58.2 kg
[~2017-06-17 08:38] MED LIST changes: -AMIT24CA5 PO; +AMIT24CA9 PO; -ASPI81TA2 PO; +ASPI81TA22 PO; -DIATRIZOATE MEGLUM/DIATRIZOATE SOD 120 ML BTL (for RAD DIAG) J-TUBE ONE
[2017-06-17] MEDS ORDERED: IOHEXOL 350 MG/ML 50 ML BTL (for RAD DIAG) G-TUBE ONE (08:39)
[2017-06-17 08:57] VITALS: BP 149/91; PULSE 90; RESP 18; TEMP 98.2; O2SAT 92
[2017-06-17] MEDS ORDERED: SODIUM CHLORIDE 0.9% 1000 ML IV SCH (09:15)
[2017-06-17] MEDS ORDERED: GUAI100S7 PO (09:50)
[2017-06-17] MEDS ORDERED: CEPH500C PO (09:50)
[2017-06-17] MEDS ORDERED: MORP1TAB25 PO (09:50)
[2017-06-17] MEDS ORDERED: NYST1000 SWISH-SWAL (09:50)
[2017-06-17] MEDS ORDERED: MORP1TAB24 PO (09:50)
[2017-06-17] MEDS ORDERED: SENN1TAB PO (09:50)
[2017-06-17] MEDS ORDERED: DEXA2TAB PO (09:50)
[2017-06-17] MEDS ORDERED: LORA0.5T PO (09:50)
[2017-06-17] MEDS ORDERED: PROC10TA PO (09:50)
[2017-06-17] MEDS ORDERED: OMEP20TA93 PO (09:50)
[2017-06-17] MEDS ORDERED: HYDR25TA5 PO (09:50)
[2017-06-17] MEDS ORDERED: IPRASOL INH (09:50)
[2017-06-17] MEDS ORDERED: BISC10SU RECTAL (09:50)
[2017-06-17] MEDS ORDERED: CLOT10TR PO (09:50)
--- NOTE | 2017-06-17 11:52 | PD.RAD ---
Post Procedure Progress Note Pre Procedure Diagnosis: (1) Damaged/Nonfunctional feeding tube Post Procedure Diagnosis: (1) Damaged/Nonfunctional feeding tube Procedure Date: Jun 17, 2017 Supervising Radiologist: Bentley Estrada JR Proceduralist/Assist: Evangelist Echeverria RT(R), Raphael Villalobos RT(R) Anesthesia: Other Plan of Activity Patient to Unit: ROPU Patient Condition: Good See PACS Report for procedural detail/treatment Feeding Tube Gastro/Jejunostomy Exchange [place]: 22 Findings: Routine exchange of tube. Jr. Sean,Bentley Dickerson MD Jun 17, 2017 11:52
[2017-06-17 12:00] VITALS: BP 139/83; PULSE 56; RESP 20; TEMP 98.3; O2SAT 92
[2017-06-17 12:15] VITALS: BP 140/90; PULSE 58; RESP 20; O2SAT 94
[2017-06-17 12:30] VITALS: BP 135/84; PULSE 60; RESP 20; O2SAT 93
--- NOTE | 2017-06-17 13:08 | RADRPT ---
EXAM DATE/TIME: 06/17/2017 12:20 [facility] COMPARISON: No previous studies available for comparison. INDICATIONS : Patient presents with gastroparesis in need of gastrojejunostomy tube exchange due to tube weakening. MEDICAL HISTORY : Gastroparesis HTN CAD HLD COPD Asthma GERD CVA Emphysema Dysphagia, Chronic low back pain SURGICAL HISTORY : GJ tube placement, Colonoscopy, Julian's fundoplication, C4 and C5 surgery SURGICAL HISTORY : GJ tube placement Colonoscopy Julian's fundoplication C4 and C5 surgery ENCOUNTER: Subsequent ACUITY: 3 months PAIN SCORE: 0/10 LOCATION: N/A FLUORO TIME: 0.8 minutes IMAGE SERIES: 3 CONTRAST: 15 cc Omnipaque (iohexol) 350 DEVICE(S): 1.) 22 [place] Transgastric tube PROCEDURE : 1. Fluoroscopically guided gastrojejunostomy tube exchange. 2. Conscious sedation with continuous EKG and oximetry monitoring. The risks, benefits and alternatives to the procedure were explained and verbal and written consent w as obtained. The site was prepped in sterile fashion. Full sterile technique was used, including ca p, mask, sterile gloves and gown and a large sterile sheet. Hand hygiene and 2% chlorhexidine and/or betadine/alcohol prep was utilized per protocol for cutaneous antisepsis. The skin and subcutaneous tissues were infiltrated with local anesthetic solution. With fluoroscopic guidance a guidewire was passed through the previous gastrojejunostomy tube and a f resh tube was placed over the guidewire. The balloon was inflated with appropriate volume of saline. Injection of positive contrast demonstrates good position of the gastric and jejunal lumens of the tube. Conscious sedation was performed with the prescribed dosages and duration as above in the presence of an independent trained radiology nurse to assist in the monitoring of the patient. EKG and oximetry remained stable throughout the procedure. The patient tolerated the procedure well and there were n o complications. The patient was sent to post anesthesia recovery in stable condition. CONCLUSION: Uncomplicated gastrojejunostomy tube exchange as above. Bentley Estrada Jr., MD on June 17, 2017 at 13:06 Board Certified Radiologist. This report was verified electronically.
== END 2017-06-17 12:45 | disposition home or self-care (01) ==
LOC: HROP 08:38 → HRIP 08:41 → HROP 12:45
PROVIDERS: ATTEND Family Medicine Hospice and Palliative Medicine
DX: K94.23 Gastrostomy malfunction (principal); K31.84 Gastroparesis; K21.9 Gastro-esophageal reflux disease without esophagitis; I10 Essential (primary) hypertension; I25.10 Atherosclerotic heart disease of native coronary artery without angina pectoris; E78.5 Hyperlipidemia, unspecified; J44.9 Chronic obstructive pulmonary disease, unspecified; M54.5 Low back pain; G89.29 Other chronic pain; Z86.73 Personal history of transient ischemic attack (TIA), and cerebral infarction without residual deficits
CPT/HCPCS: 49452; C1769; C1874; Q9967

== ENCOUNTER 2017-10-15 11:56 | Emergency (ER) | payer SELFPAY ==
[~2017-10-15] VITALS: Ht 165.1 cm; Wt 75.0 kg
[~2017-10-15 11:56] MED LIST changes: -AMIT24CA9 PO; +BISC10SU RECTAL; +CEPH500C PO; -CREON12 PO; +DEXA2TAB PO; -DOMPERIDONE PO; +GUAI100S7 PO; +HYDR25TA5 PO; +IPRASOL INH; +LORA0.5T PO; -LOVA40TA PO; +MORP1TAB24 PO; +MORP1TAB25 PO; +NYST1000 SWISH-SWAL; +OMEP20TA93 PO; +PROC10TA PO; -SCOP1PAT2 T-DERMAL; +SENN1TAB PO
[2017-10-15 12:07] VITALS: BP 124/69; PULSE 85; RESP 22; O2SAT 91
--- NOTE | 2017-10-15 12:21 | PD ---
HPI Chief Complaint: Sld Educational Aide Problem Time Seen by Provider: 12:07 Travel History International Travel<30 days: No Contact w/Intl Traveler<30days: No Traveled to known affect area: No History of Present Illness HPI 62-year-old female with end-stage COPD, on hospice care at home, presents to emergency department for evaluation of J-tube dislodgment. Patient states a couple numbness morning. Patient only uses it for lactulose as she cannot tolerate tube feeding through it. Reports no acute pain. Patient states she is always in pain. She is on a short of breath. Patient denies any other symptoms at this time. PFSH Past Medical History Arthritis: Yes Asthma: Yes Autoimmune Disease: No Blood Disorders: No Anxiety: No Depression: No Heart Rhythm Problems: Yes (Irregular) Cancer: No Cardiovascular Problems: Yes (irregular heart beat) High Cholesterol: Yes Chemotherapy: No COPD: Yes Cerebrovascular Accident: Yes Diabetes: No Diminished Hearing: No Endocrine: No Gastrointestinal Disorders: Yes (GERD, DIFFICULTY SWALLOWING, N/V) GERD: Yes Genitourinary: Yes (INCONTINENCE) Headaches: Yes Hepatitis: No Hiatal Hernia: No Hypertension: Yes Immune Disorder: No Musculoskeletal: Yes (hernia disc in spine) Neurologic: Yes (neuropathy) Psychiatric: No Reproductive: No Respiratory: Yes (COPD/ EMPHYSEMA) Immunizations Current: Yes Migraines: No Radiation Therapy: No Seizures: Yes Sleep Apnea: No Thyroid Disease: No Menopausal: Yes Past Surgical History Abdominal Surgery: Yes (NISSIN FUNDALPLICATION) AICD: No Arteriovenous Shunt: No Body Medical Devices: NONE Cardiac Surgery: No Ear Surgery: No Endocrine Surgery: No Eye Surgery: No Genitourinary Surgery: No Gynecologic Surgery: No Insulin Pump: No Joint Replacement: No Neurologic Surgery: No Oral Surgery: Yes (NASAL SURGERY) Pacemaker: No Thoracic Surgery: No Tonsillectomy: Yes Other Surgery: Yes (NECK SURGERY, NOSE SURGERY,FUNDOPLICATION) Social History Alcohol Use: No Tobacco Use: Yes (1PPD) Substance Use: No Allergies-Medications (Allergen,Severity, Reaction): Coded Allergies: diphenhydramine (Unverified Allergy, Severe, UNABLE TO BREATHE, 10/15/17) dronabinol (Unverified Allergy, Severe, confusions paranoid seizure like activity, 10/15/17) ibuprofen (Unverified Allergy, Severe, AFFECTS MY STOMACH, 10/15/17) aspirin (Unverified Allergy, Intermediate, NAUSEA, 10/15/17) do not take a full strength, can only take a baby aspirin and enteric coated. codeine (Unverified Allergy, Intermediate, 10/15/17) massive headaches epinephrine (Unverified Allergy, Unknown, PT DOESN'T RECALL HAVING ALLERGY /ADVERSE, 10/15/17) Uncoded Allergies: ANTIHISTAMINE (Allergy, Intermediate, 03/15/17) difficulty breathing Reported Meds & Prescriptions Reported Meds & Active Scripts Active Reported Benefiber (Wheat Dextrin) 3 Gram/3.8 Gram Powder PO DAILY PRN 2 TEASPOONSFUL IN JUICE OR WATER Simethicone 125 Mg Chw 125 Mg PO BID Potassium Chloride ER (Potassium Chloride) 10 Meq Tab 10 Meq PO DAILY Morphine Liq (Morphine Sulfate) 20 Mg/Ml Liq 10 Mg PO Q2HR PRN Morphine Liq (Morphine Sulfate) 20 Mg/Ml Liq 5 Mg PO Q2HR PRN Milk of Magnesia Liq (Magnesium Hydroxide) 400 Mg/5 Ml Susp 30 Ml PO DAILY PRN Ativan (Lorazepam) 1 Mg Tab 1 Mg PO Q2HR PRN Haloperidol 1 Mg Tab 1 Mg PO Q4HR PRN Lasix (Furosemide) 40 Mg Tab 40 Mg PO BID Colace (Docusate Sodium) 100 Mg Capsule 100 Mg PO BID PRN Magic Mouthwash Pediatric/Adult Liq (Lidocaine/Diphenhydr/Alum/Mg/Simeth) 60 Ml Susp 5 Ml SWISH-SWAL QID PRN Each 5mL contains: Diphenydramine 4.5mg, Viscous Lidocaine 2% 10mg, Maalox Advanced Regular Strength 2.7ml Azelastine Nasal Streator (Azelastine HCl) 0.1% Streator 1 Streator EACH NARE BID Acidophilus Lactobacillus (Lactobacillus Acidophilus) 1 Each Capsule 1 Cap PO DAILY Duoneb (Ipratropium-Albuterol Neb) 0.5-2.5 Mg/3 Ml Neb 3 Ml INH Q4HR PRN Dexamethasone 2 Mg Tab 2 Mg PO BID Lorazepam 0.5 Mg Tab 0.5 Mg PO Q2HR PRN Biscolax Supp (Bisacodyl) 10 Mg Supp 10 Mg RECTAL DAILY PRN Senna-Plus (Sennosides-Docusate Sodium) 8.6-50 Mg Tab 1 Tab PO BID PRN Omeprazole 20 Mg Tab 20 Mg PO BID Guaifenesin Liq (Guaifenesin) 100 mg/5 ML Soln 100 Mg PO Q6H PRN Prochlorperazine Maleate 10 Mg Tab 10 Mg PO Q6H PRN Morphine ER (Morphine Sulfate) 30 Mg Tab 30 Mg PO Q8HR Tylenol Extra Strength (Acetaminophen) 500 Mg Tablet 1 Tab PO Q8HR PRN PRN Aspirin EC Low Dose (Aspirin) 81 Mg Tabec 162 Mg PO DAILY Constulose Liq (Lactulose) 10 Gm/15 Ml Soln 30 Ml PO BID Clotrimazole Jamison (Clotrimazole) 10 Mg Troc 10 Mg PO TID Clonazepam 0.5 Mg Tab 0.5 Mg PO Q6HR Gabapentin 100 Mg Cap 200 Mg PO TID Take 2 capsules by mouth 3 times daily PRN Ventolin Hfa 18 GM Inh (Albuterol Sulfate) 90 Mcg/Act Aer 1 Puff INH Q6HR PRN Breo Ellipta Inh (Fluticasone/Vilanterol) 100-25 Mcg/Act Inh 1 Puff INH DAILY Use daily at the same time. Baclofen 20 Mg Tab 20 Mg PO QID Review of Systems Except as stated in HPI: all other systems reviewed are Neg Physical Exam Narrative GENERAL: Chronically ill-appearing female patient, sitting up in bed in no acute distress. SKIN: Focused skin assessment warm/dry. Lightly sparks/pallor. HEAD: Atraumatic. Normocephalic. EYES: Pupils equal and round. Bilateral scleral icterus. No injection or drainage. ENT: No nasal bleeding or discharge. Mucous membranes pink and moist. NECK: Trachea midline. No JVD. CARDIOVASCULAR: Regular rate and rhythm. No murmur appreciated. RESPIRATORY: Shallow respirations.. Diminished throughout. Breath sounds equal bilaterally. GASTROINTESTINAL: Abdomen distended, mildly firm. J-tube wound open sternum by mild erythema extending to the left lateral abdomen where it has been leaking. MUSCULOSKELETAL: No obvious deformities. No clubbing. No cyanosis. No edema. NEUROLOGICAL: Awake and alert. No obvious cranial nerve deficits. Motor grossly within normal limits. Normal speech. PSYCHIATRIC: Appropriate mood and affect; insight and judgment normal. Data Data Last Documented VS Vital Signs Date Time Temp Pulse Resp B/P (MAP) Pulse Ox O2 Delivery O2 Flow Rate FiO2 10/15/17 15:21 78 17 122/70 (87) 94 Nasal Cannula 2.00 Orders Orders Lidocaine 2% Viscous (Xylocaine 2% Visco (10/15/17 12:24) Diet Progression Instructions (10/15/17 14:58) Vital Signs (Adult) Q15MX2 (10/15/17 14:58) Wound Care (10/15/17 14:58) Wound Care (10/15/17 14:58) ^ Flush Tube (10/15/17 14:58) ^ Crush Medications (10/15/17 14:58) Notify Dr: Other (10/15/17 14:58) Notify Dr: Temperature (10/15/17 14:58) Discharge Instructions (10/15/17 14:58) Gastrojejunal Tube Placement (10/15/17 ) Ed Discharge Order (10/15/17 15:49) MDM Medical Decision Making Medical Screen Exam Complete: Yes Emergency Medical Condition: Yes Medical Record Reviewed: Yes Differential Diagnosis cable lacer malfunction versus dislodgment versus healed wound Narrative Course 62-year-old female presents emergency department for replacement of her JG tube that was pulled out today. Patient appears chronically ill. She is on hospice. She has no other new complaints at this time. I discussed the patient my attending physician who contacted interventional radiology. New JG tube will be placed. Please refer to that documentation by Dr. Kenneth Caedt. 1530 patient returns from invasive radiology. She has no new complaints. Tube has been replaced and is good for use. Patient will be discharged home. Diagnosis Primary Impression: Encounter for gastrojejunal (GJ) tube placement Referrals: Primary Care Physician Patient Instructions: General Instructions Additional Instructions: It is okay to use your JG tube Follow-up with your primary care provider Return immediately with any acute worsening symptoms Med/Other Pt SpecificInfo: No Change to Meds Disposition: 01 DISCHARGE HOME Condition: Stable Mattie Dove DEBORAH Oct 15, 2017 12:21
[2017-10-15] MEDS ORDERED: LIDOCAINE VISCOUS 2% SOLN 15 ML UDC OTHER STA (12:24)
--- NOTE | 2017-10-15 12:40 | PD ---
Physical Exam Date Seen by Provider: Oct 15, 2017 Time Seen by Provider: 12:38 Narrative The patient is a 62-year-old female who is currently on hospice for end-stage emphysema. Her GJ tube came dislodged comment was placed in June by the interventional radiologist, Dr. Estrada. The patient does have a history of gastroparesis, uses her GJ tube for medications including lactulose. Data Data Last Documented VS Vital Signs Date Time Temp Pulse Resp B/P (MAP) Pulse Ox O2 Delivery O2 Flow Rate FiO2 10/15/17 12:07 85 22 124/69 (87) 91 Orders Orders Invasive Rad Dept Consult (10/15/17 ) Lidocaine 2% Viscous (Xylocaine 2% Visco (10/15/17 12:24) MDM Medical Record Reviewed: Yes Supervised Visit with SALLY: Yes Differential Diagnosis Differential diagnosis includes GJ tube malfunction, displacement, hospice, gastroparesis, dehydration. Narrative Course I discussed the patient with the on-call interventional radiologist who is in house, Dr. Kenneth Cadet, who requests that we place viscous lidocaine into the hole from the previous GJ tube for numbing and he will place a GJ tube. No labs are required. Diagnosis Primary Impression: Encounter for gastrojejunal (GJ) tube placement Patient Instructions: General Instructions Additional Instruction: Follow-up with your primary physician. Return if symptoms worsen or progress. Disposition: 01 DISCHARGE HOME Condition: Stable Feliciano Azevedo MD Oct 15, 2017 12:40
[2017-10-15] MEDS ORDERED: MILKSUS PO (14:09)
[2017-10-15] MEDS ORDERED: MORP20SO2 PO (14:09)
[2017-10-15] MEDS ORDERED: FURO1TAB60 PO (14:09)
[2017-10-15] MEDS ORDERED: COLA100C5 PO (14:09)
[2017-10-15] MEDS ORDERED: WHEA1POW9 PO (14:09)
[2017-10-15] MEDS ORDERED: AZEL1SPR2 EACH NARE (14:09)
[2017-10-15] MEDS ORDERED: LORA-474 PO (14:09)
[2017-10-15] MEDS ORDERED: SIME1CHW13 PO (14:09)
[2017-10-15] MEDS ORDERED: POTA10TA2 PO (14:09)
[2017-10-15] MEDS ORDERED: HALO1TAB PO (14:09)
[2017-10-15] MEDS ORDERED: MAGICPED SWISH-SWAL (14:09)
[2017-10-15] MEDS ORDERED: LACT1CAP20 PO (14:09)
--- NOTE | 2017-10-15 15:01 | PD.RAD ---
Post Procedure Progress Note Pre Procedure Diagnosis: (1) Encounter for gastrojejunal (GJ) tube placement Post Procedure Diagnosis: (1) Encounter for gastrojejunal (GJ) tube placement Procedure Date: Oct 15, 2017 Supervising Radiologist: Saud Cadet Estimated blood loss: none Anesthesia: Local Plan of Activity Patient to Unit: Other Patient Condition: Good Additional Comments: G/J tube replaced without difficulty. New tube verified to be in position OK for use Full dictated report to follow See PACS Report for procedural detail/treatment Saud Cadet MD Oct 15, 2017 15:01
[2017-10-15 15:21] VITALS: BP 122/70; PULSE 78; RESP 17; O2SAT 94
--- NOTE | 2017-10-15 15:43 | RADRPT ---
EXAM DATE/TIME: 10/15/2017 14:39 [facility] COMPARISON: CHANGE OF GJ-TUBE CATHETER, June 17, 2017, 12:20. INDICATIONS : Patient's gastrojejunal tube had come out and in need of a replacement. MEDICAL HISTORY : Gastroparesis HTN CAD HLD COPD Asthma GERD CVA Emphysema Dysphagia, Chronic low back pain SURGICAL HISTORY : GJ tube placement, Colonoscopy, Julian's fundoplication, C4 and C5 surgery SURGICAL HISTORY : GJ tube placement Colonoscopy Julian's fundoplication C4 and C5 surgery ENCOUNTER: Initial ACUITY: 1 day PAIN SCORE: 0/10 FLUORO TIME: 7.4 minutes IMAGE SERIES: 1 CONTRAST: 15 cc Omnipaque (iohexol) 350 DEVICE(S): 1.) 22 Fr gastrojejunostomy tube PROCEDURE : 1. Fluoroscopically guided gastrojejunostomy tube placement. 2. Conscious sedation with continuous EKG and oximetry monitoring. The risks, benefits and alternatives to the procedure were explained and verbal and written consent w as obtained. The site was prepped in sterile fashion. Full sterile technique was used, including ca p, mask, sterile gloves and gown and a large sterile sheet. Hand hygiene and 2% chlorhexidine and/or betadine/alcohol prep was utilized per protocol for cutaneous antisepsis. The existing track was ane sthetized with viscous lidocaine approximately 30 minutes prior to the procedure. The existing tract was accessed with a 0.035 angle Glidewire and Berenstein catheter. This combinatio n was manipulated through the floors and down into the small bowel. A new 22 [place]e transgastric J-tu be was advanced over the wire without difficulty. The balloon was inflated. Position of the gastric a nd jejunal length was verified with injection of contrast. The patient tolerated the procedure well. The patient was transferred back to the ED without difficulty. No sedation was given. CONCLUSION: Uncomplicated gastrojejunostomy tube replacement through an existing tract. Saud Cadet MD on October 15, 2017 at 15:39 Board Certified Radiologist. This report was verified electronically.
[2017-10-15 15:57] VITALS: BP 122/70; PULSE 78; RESP 16; TEMP 98.2; O2SAT 94
== END 2017-10-15 16:54 | disposition home or self-care (01) ==
LOC: NEPE 11:56
DX: T85.528A Displacement of other gastrointestinal prosthetic devices, implants and grafts, initial encounter (principal); J44.9 Chronic obstructive pulmonary disease, unspecified; I10 Essential (primary) hypertension; E78.00 Pure hypercholesterolemia, unspecified; M19.90 Unspecified osteoarthritis, unspecified site; K21.9 Gastro-esophageal reflux disease without esophagitis; F17.200 Nicotine dependence, unspecified, uncomplicated; Z86.73 Personal history of transient ischemic attack (TIA), and cerebral infarction without residual deficits
CPT/HCPCS: 49440; 49446; 99284; C1769; C1887

== ENCOUNTER 2017-10-22 13:56 | Observation (INO) | payer OTHER ==
[2017-10-22] VITALS (8 sets, daily range): BP systolic 81–112; BP diastolic 53–77; PULSE 62–118; RESP 10–24; TEMP 98.2; O2SAT 89–97
[~2017-10-22] VITALS: Ht 165.1 cm; Wt 100.0 kg
[~2017-10-22 13:56] MED LIST changes: +AZEL1SPR2 EACH NARE; -BETH25 PO; -CEPH500C PO; +COLA100C5 PO; -FDGARD PO; -FEXO180T PO; -FLUC10SU PO; -FLUT1SPR9 EACH NARE; +FURO1TAB60 PO; +HALO1TAB PO; -HYDR25TA5 PO; -IPRA17I INH; +LACT1CAP20 PO; -LACT70CA PO; +LORA-474 PO; +MAGICPED SWISH-SWAL; +MILKSUS PO; -MORP1TAB24 PO; +MORP20SO2 PO; -NYST1000 SWISH-SWAL; -PANT20TA2 PO; -PEPP90CA PO; +POTA10TA2 PO; +SIME1CHW13 PO; +WHEA1POW9 PO; -ZOFR8TAB PO
[2017-10-22] MEDS ORDERED: SODIUM CHLORIDE 0.9% FLUSH 10 ML FLUSH IV FLUSH PRN ×2 (14:45→17:30)
[2017-10-22] MEDS ORDERED: DIATRIZOATE MEGLUM/DIATRIZOATE SOD 120 ML BTL (for RAD DIAG) G-TUBE ONE (15:20)
--- NOTE | 2017-10-22 15:44 | PD ---
HPI Chief Complaint: Counseling Case Manager Problem Time Seen by Provider: 14:39 Travel History International Travel<30 days: No Contact w/Intl Traveler<30days: No Traveled to known affect area: No History of Present Illness HPI 62-year-old female patient with history of G-tube which was dislodged last week , replaced by Dr. Cadet, here because she has had leakage around the G-tube site again. She apparently has not been eating well according to the , and appears a little bit more tired than usual, less responsive. She denies any fevers, pain, abdominal discomfort, or new issues. Modifying Factors: None Associated Signs & Symptoms: Leaking around G-tube site, decreased p.o. intake Risk Factors: Problems with the G-tube PFSH Past Medical History Arthritis: Yes Asthma: Yes Autoimmune Disease: No Blood Disorders: No Anxiety: No Depression: No Heart Rhythm Problems: Yes (Irregular) Cancer: No Cardiovascular Problems: Yes (irregular heart beat) High Cholesterol: Yes Chemotherapy: No COPD: Yes Cerebrovascular Accident: Yes Diabetes: No Diminished Hearing: No Endocrine: No Gastrointestinal Disorders: Yes (GERD, DIFFICULTY SWALLOWING, N/V) GERD: Yes Genitourinary: Yes (INCONTINENCE) Headaches: Yes Hepatitis: No Hiatal Hernia: No Hypertension: Yes Immune Disorder: No Medical other: Yes (ON HOSPICE) Musculoskeletal: Yes (hernia disc in spine) Neurologic: Yes (neuropathy) Psychiatric: No Reproductive: No Respiratory: Yes (COPD/ EMPHYSEMA) Immunizations Current: Yes Migraines: No Radiation Therapy: No Seizures: Yes Sleep Apnea: No Thyroid Disease: No Menopausal: Yes Past Surgical History Abdominal Surgery: Yes (NISSIN FUNDALPLICATION, Jtube) AICD: No Arteriovenous Shunt: No Body Medical Devices: NONE Cardiac Surgery: No Ear Surgery: No Endocrine Surgery: No Eye Surgery: No Genitourinary Surgery: No Gynecologic Surgery: No Insulin Pump: No Joint Replacement: No Neurologic Surgery: Yes (C3-C4 FUSION) Oral Surgery: Yes (NASAL SURGERY) Pacemaker: No Thoracic Surgery: No Tonsillectomy: Yes Other Surgery: Yes (NECK SURGERY, NOSE SURGERY,FUNDOPLICATION) Social History Alcohol Use: No Tobacco Use: No Substance Use: No Allergies-Medications (Allergen,Severity, Reaction): Coded Allergies: diphenhydramine (Unverified Allergy, Severe, UNABLE TO BREATHE, 10/22/17) dronabinol (Unverified Allergy, Severe, confusions paranoid seizure like activity, 10/22/17) ibuprofen (Unverified Allergy, Severe, AFFECTS MY STOMACH, 10/22/17) aspirin (Unverified Allergy, Intermediate, NAUSEA, 10/22/17) do not take a full strength, can only take a baby aspirin and enteric coated. codeine (Unverified Allergy, Intermediate, 10/22/17) massive headaches epinephrine (Unverified Allergy, Unknown, PT DOESN'T RECALL HAVING ALLERGY /ADVERSE, 10/22/17) Uncoded Allergies: ANTIHISTAMINE (Allergy, Intermediate, 03/15/17) difficulty breathing Reported Meds & Prescriptions Reported Meds & Active Scripts Active Reported Benefiber (Wheat Dextrin) 3 Gram/3.8 Gram Powder PO DAILY PRN 2 TEASPOONSFUL IN JUICE OR WATER Simethicone 125 Mg Chw 125 Mg PO BID Potassium Chloride ER (Potassium Chloride) 10 Meq Tab 10 Meq PO DAILY Morphine Liq (Morphine Sulfate) 20 Mg/Ml Liq 10 Mg PO Q2HR PRN Morphine Liq (Morphine Sulfate) 20 Mg/Ml Liq 5 Mg PO Q2HR PRN Milk of Magnesia Liq (Magnesium Hydroxide) 400 Mg/5 Ml Susp 30 Ml PO DAILY PRN Ativan (Lorazepam) 1 Mg Tab 1 Mg PO Q2HR PRN Haloperidol 1 Mg Tab 1 Mg PO Q4HR PRN Lasix (Furosemide) 40 Mg Tab 40 Mg PO BID Colace (Docusate Sodium) 100 Mg Capsule 100 Mg PO BID PRN Magic Mouthwash Pediatric/Adult Liq (Lidocaine/Diphenhydr/Alum/Mg/Simeth) 60 Ml Susp 5 Ml SWISH-SWAL QID PRN Each 5mL contains: Diphenydramine 4.5mg, Viscous Lidocaine 2% 10mg, Maalox Advanced Regular Strength 2.7ml Azelastine Nasal [place] (Azelastine HCl) 0.1% [place] 1 [place] EACH NARE BID Acidophilus Lactobacillus (Lactobacillus Acidophilus) 1 Each Capsule 1 Cap PO DAILY Duoneb (Ipratropium-Albuterol Neb) 0.5-2.5 Mg/3 Ml Neb 3 Ml INH Q4HR PRN Dexamethasone 2 Mg Tab 2 Mg PO BID Lorazepam 0.5 Mg Tab 0.5 Mg PO Q2HR PRN Biscolax Supp (Bisacodyl) 10 Mg Supp 10 Mg RECTAL DAILY PRN Senna-Plus (Sennosides-Docusate Sodium) 8.6-50 Mg Tab 1 Tab PO BID PRN Omeprazole 20 Mg Tab 20 Mg PO BID Guaifenesin Liq (Guaifenesin) 100 mg/5 ML Soln 100 Mg PO Q6H PRN Prochlorperazine Maleate 10 Mg Tab 10 Mg PO Q6H PRN Morphine ER (Morphine Sulfate) 30 Mg Tab 30 Mg PO Q8HR Tylenol Extra Strength (Acetaminophen) 500 Mg Tablet 1 Tab PO Q8HR PRN PRN Aspirin EC Low Dose (Aspirin) 81 Mg Tabec 162 Mg PO DAILY Constulose Liq (Lactulose) 10 Gm/15 Ml Soln 30 Ml PO BID Clotrimazole [place] (Clotrimazole) 10 Mg Troc 10 Mg PO TID Clonazepam 0.5 Mg Tab 0.5 Mg PO Q6HR Gabapentin 100 Mg Cap 200 Mg PO TID Take 2 capsules by mouth 3 times daily PRN Ventolin Hfa 18 GM Inh (Albuterol Sulfate) 90 Mcg/Act Aer 1 Puff INH Q6HR PRN Breo Ellipta Inh (Fluticasone/Vilanterol) 100-25 Mcg/Act Inh 1 Puff INH DAILY Use daily at the same time. Baclofen 20 Mg Tab 20 Mg PO QID Review of Systems Except as stated in HPI: all other systems reviewed are Neg Physical Exam Narrative GENERAL: Well-developed elderly female patient currently in mild distress. Awake and oriented 3, but does appear more tired. Answering questions appropriately. SKIN: Focused skin assessment warm/dry. HEAD: Atraumatic. Normocephalic. EYES: Pupils equal and round. No scleral icterus. No injection or drainage. ENT: No nasal bleeding or discharge. Mucous membranes pink and moist. NECK: Trachea midline. No JVD. CARDIOVASCULAR: Regular rate and rhythm. No murmur appreciated. RESPIRATORY: No accessory muscle use. Clear to auscultation. Breath sounds equal bilaterally. GASTROINTESTINAL: Abdomen soft, non-tender, mildly distended. Hepatic and splenic margins not palpable. G-tube appears to be in place. There is notable bilious fluid coming out the side of the tube. MUSCULOSKELETAL: No obvious deformities. No clubbing. No cyanosis. No edema. NEUROLOGICAL: Awake and alert. No obvious cranial nerve deficits. Motor grossly within normal limits. Normal speech. PSYCHIATRIC: Appropriate mood and affect; insight and judgment normal. Data Data Last Documented VS Vital Signs Date Time Temp Pulse Resp B/P (MAP) Pulse Ox O2 Delivery O2 Flow Rate FiO2 10/22/17 16:56 75 10 100/64 (76) 95 Nasal Cannula 3.00 Orders Orders Complete Blood Count With Diff (10/22/17 14:41) Comprehensive Metabolic Panel (10/22/17 14:41) Urinalysis - C+S If Indicated (10/22/17 14:41) Blood Glucose (10/22/17 14:41) Ecg Monitoring (10/22/17 14:41) Iv Access Insert/Monitor (10/22/17 14:41) Oximetry (10/22/17 14:41) Sodium Chloride 0.9% Flush (Ns Flush) (10/22/17 14:45) Abdomen, Flat & Upright (10/22/17 15:00) Abdomen, Kub Only (10/22/17 ) Diatrizoate Liq ( Gastroview Liq) (10/22/17 15:20) Urine Culture (10/22/17 14:45) Us Abdomen Gallbladder (10/22/17 16:21) Sodium Chlor 0.9% 1000 Ml Inj (Ns 1000 M (10/22/17 16:45) Blood Culture (10/22/17 16:37) Lactic Acid Sepsis Protocol (10/22/17 16:37) Piperacil-Tazo 4.5 Gm Premix (Zosyn 4.5 (10/22/17 16:37) Admit Order (Ed Use Only) (10/22/17 17:29) Place In Observation (10/22/17 ) Vital Signs (Adult) Q4H (10/22/17 17:30) Activity Oob With Assistance (10/22/17 17:30) Sodium Chlor 0.9% 1000 Ml Inj (Ns 1000 M (10/22/17 17:30) Sodium Chloride 0.9% Flush (Ns Flush) (10/22/17 17:30) Sodium Chloride 0.9% Flush (Ns Flush) (10/22/17 21:00) Ondansetron Inj (Zofran Inj) (10/22/17 17:30) Comprehensive Metabolic Panel (10/23/17 06:00) Complete Blood Count With Diff (10/23/17 06:00) Scd Bilateral/Knee High ZOILA.BID (10/22/17 17:30) Naloxone Inj (Narcan Inj) (10/22/17 17:30) Piperacil-Tazo 3.375 Gm Premix (Zosyn 3. (10/23/17 01:00) Labs Laboratory Tests Test 10/22/17 14:45 10/22/17 16:50 White Blood Count 8.4 TH/MM3 Red Blood Count 4.66 MIL/MM3 Hemoglobin 14.8 GM/DL Hematocrit 45.1 % Mean Corpuscular Volume 96.9 FL Mean Corpuscular Hemoglobin 31.7 PG Mean Corpuscular Hemoglobin Concent 32.7 % Red Cell Distribution Width 13.9 % Platelet Count 210 TH/MM3 Mean Platelet Volume 7.9 FL Neutrophils (%) (Auto) 77.5 % Lymphocytes (%) (Auto) 13.0 % Monocytes (%) (Auto) 7.7 % Eosinophils (%) (Auto) 1.1 % Basophils (%) (Auto) 0.7 % Neutrophils # (Auto) 6.5 TH/MM3 Lymphocytes # (Auto) 1.1 TH/MM3 Monocytes # (Auto) 0.7 TH/MM3 Eosinophils # (Auto) 0.1 TH/MM3 Basophils # (Auto) 0.1 TH/MM3 CBC Comment DIFF FINAL Differential Comment Urine Color YELLOW Urine Turbidity HAZY Urine pH 6.5 Urine Specific [place] 1.013 Urine Protein TRACE mg/dL Urine Glucose (UA) NEG mg/dL Urine Ketones NEG mg/dL Urine Occult Blood MOD Urine Nitrite NEG Urine Bilirubin NEG Urine Urobilinogen LESS THAN 2.0 MG/DL Urine Leukocyte Esterase LARGE Urine RBC 21 /hpf Urine WBC /hpf Urine WBC Clumps FEW Urine Bacteria RARE /hpf Urine Hyaline Casts 18 /lpf Urine Mucus FEW /lpf Microscopic Urinalysis Comment CATH-CULTURE IND Blood Urea Nitrogen 15 MG/DL Creatinine 0.87 MG/DL Random Glucose 124 MG/DL Total Protein 6.9 GM/DL Albumin 2.9 GM/DL Calcium Level 8.6 MG/DL Alkaline Phosphatase 81 U/L Aspartate Amino Transf (AST/SGOT) 51 U/L Alanine Aminotransferase (ALT/SGPT) 54 U/L Total Bilirubin 0.5 MG/DL Sodium Level 140 MEQ/L Potassium Level 4.2 MEQ/L Chloride Level 93 MEQ/L Carbon Dioxide Level 43.8 MEQ/L Anion Gap 3 MEQ/L Estimat Glomerular Filtration Rate 66 ML/MIN Lactic Acid Level 0.9 mmol/L MDM Medical Decision Making Medical Screen Exam Complete: Yes Emergency Medical Condition: Yes Medical Record Reviewed: Yes Interpretation(s) Laboratory Tests Test 10/22/17 14:45 10/22/17 16:50 Neutrophils (%) (Auto) 77.5 % (16.0-70.0) Urine Turbidity HAZY (CLEAR) Urine Occult Blood MOD (NEG) Urine Leukocyte Esterase LARGE (NEG) Urine RBC 21 /hpf (0-3) Urine WBC Clumps FEW (NONE) Urine Bacteria RARE /hpf (NONE) Urine Mucus FEW /lpf (OCC) Random Glucose 124 MG/DL (74-106) Albumin 2.9 GM/DL (3.4-5.0) Aspartate Amino Transf (AST/SGOT) 51 U/L (15-37) Alanine Aminotransferase (ALT/SGPT) 54 U/L (10-53) Chloride Level 93 MEQ/L (98-107) Carbon Dioxide Level 43.8 MEQ/L (21.0-32.0) Anion Gap 3 MEQ/L (5-15) Estimat Glomerular Filtration Rate 66 ML/MIN (>89) Differential Diagnosis G-tube dislodgment versus obstruction Narrative Course I have discussed the case briefly with Dr. Becerril who states that the patient has a 22-Y[place] tube already and this is the largest size they usually use for this purpose. He would not recommend any new changes of the G-tube at this time. However, leaking around the feeding tube can occur if there is an increased of gastric pressures. X-rays show that there is no signs of obstruction. Her G-tube has confirmed to be in place. The balloon for the G- tube was deflated and reinflated with 10 cc of normal saline. At this point, he appears to have improved the leaking issue. Lab work does show a UTI and patient's blood pressure is low in the ER. IV antibiotics were initiated and IV antibiotics were initiated after cultures were drawn. At this point, case was discussed with Dr. Major for admission for further treatment. Diagnosis Primary Impression: UTI (urinary tract infection) Additional Impressions: Sepsis Malfunction of gastrostomy tube Admitting Information Admitting Physician Requests: Admit Ryan Heaton MD Oct 22, 2017 15:44
[2017-10-22 15:51] LABS: AUTOMATED NEUTROPHIL # 6.5 TH/MM3 (1.8-7.7); BASOPHIL # 0.1 TH/MM3 (0-0.2); BASOPHIL % 0.7 % (0.0-2.0); EOSINOPHIL # 0.1 TH/MM3 (0-0.4); EOSINOPHIL % 1.1 % (0.0-4.0); HEMATOCRIT 45.1 % (35.0-46.0); HEMOGLOBIN 14.8 GM/DL (11.6-15.3); LYMPHOCYTE # 1.1 TH/MM3 (1.0-4.8); MEAN CELL VOLUME 96.9 FL (80.0-100.0); MEAN CORPUSCULAR HEMOGLOBIN 31.7 PG (27.0-34.0); MEAN CORPUSCULAR HGB CONC 32.7 % (32.0-36.0); MEAN PLATELET VOLUME 7.9 FL (7.0-11.0); MONO % 7.7 % (0.0-8.0); MONOCYTE # 0.7 TH/MM3 (0-0.9); NEUT % 77.5 % (16.0-70.0); PLATELET COUNT 210 TH/MM3 (150-450); RED BLOOD COUNT 4.66 MIL/MM3 (4.00-5.30); RED CELL DISTRIBUTION WIDTH 13.9 % (11.6-17.2); WHITE BLOOD COUNT 8.4 TH/MM3 (4.0-11.0)
[2017-10-22 15:58] LABS: BACTERIA, URINE RARE /hpf; BILIRUBIN, URINE NEG (NEG); BLOOD, URINE MOD (NEG); GLUCOSE,URINE NEG (NEG); HYALINE CAST, URINE 18 /lpf (RARE); KETONE, URINE NEG (NEG); MUCUS URINE FEW /lpf (OCC); NITRITE,URINE NEG (NEG); PH, URINE 6.5 (5.0-8.5); URINE COLOR YELLOW (YELLW/STRAW); URINE LEUKOCYTE ESTERASE LARGE (NEG); WHITE BLOOD CELL CLUMPS FEW
[2017-10-22 16:18] LABS: ALBUMIN 2.9 GM/DL (3.4-5.0); ALKALINE PHOSPHATASE 81 U/L (45-117); ALT (GPT) 54 U/L (10-53); AST (GOT) 51 U/L (15-37); BICARBONATE 43.8 MEQ/L (21.0-32.0); BLOOD UREA NITROGEN 15 MG/DL (7-18); CALCIUM 8.6 MG/DL (8.5-10.1); CHLORIDE 93 MEQ/L (98-107); CREATININE 0.87 MG/DL (0.50-1.00); GLOMERULAR FILTRATION RATE 66 ML/MIN (>89); GLUCOSE,RANDOM 124 MG/DL (74-106); SODIUM (NA) 140 MEQ/L (136-145); TOTAL BILIRUBIN ADULT 0.5 MG/DL (0.2-1.0); TOTAL PROTEIN 6.9 GM/DL (6.4-8.2)
[2017-10-22] MEDS ORDERED: PIPERACIL-TAZO 4.5 GM PREMIX 100 ML IV STA (16:37)
--- NOTE | 2017-10-22 16:41 | RADRPT ---
EXAM DATE/TIME: 10/22/2017 15:10 [facility] COMPARISON: No previous studies available for comparison. INDICATIONS : Obstruction MEDICAL HISTORY : Gastroparesis, asthma, GERD, CVA, COPD SURGICAL HISTORY : GJ tube placement, Colonoscopy, Julian's fundoplication, ENCOUNTER: Initial ACUITY: 2 days PAIN SCORE: 0/10 LOCATION: Abdomen FINDINGS: Supine and upright views of the abdomen were performed. There is a tube over the upper abdomen. The stomach to be a GJ tube with the tip extending into the proximal jejunum in the left lower quadrant. The abdominal bowel gas pattern is normal. There is a moderate amount of stool in the colon. No air fluid levels are seen. No abnormal masses, calcifications, or organomegaly is seen. The visualized lower lungs are clear. No evidence of free intraperitoneal gas. There is degenerative change of the lumbar spine. CONCLUSION: Dilated bowel is not seen. There is a GJ tube in place. Andrew Porter MD on October 22, 2017 at 16:37 Board Certified Radiologist. This report was verified electronically.
[2017-10-22] MEDS ORDERED: SODIUM CHLOR 0.9% 1000 ML INJ 1,000 ML IV ONE (16:45)
--- NOTE | 2017-10-22 16:48 | RADRPT ---
EXAM DATE/TIME: 10/22/2017 15:16 [facility] COMPARISON: ABDOMEN KUB ONLY, March 09, 2017, 10:55. INDICATIONS : Evaluate G tube. MEDICAL HISTORY : Gastroparesis, GERD, CVA, COPD SURGICAL HISTORY : GJ tube placement, Colonoscopy, Julian's fundoplication, ENCOUNTER: Subsequent ACUITY: 2 days PAIN SCORE: 2/10 LOCATION: Abdomen FINDINGS: Supine view of the abdomen was performed. Contrast has been instilled through a GJ tube with contras t seen in the stomach extending into the duodenum. Contrast is not seen around the distal aspect of t he GJ tube at the proximal jejunum. The abdominal bowel gas pattern is normal. No abnormal masses, c alcifications, or organomegaly is seen. Degenerative changes seen in the lumbar spine. Clips are seen in the left upper quadrant. CONCLUSION: GJ tube in good position. Andrew Porter MD on October 22, 2017 at 16:45 Board Certified Radiologist. This report was verified electronically.
[2017-10-22] MEDS ORDERED: NALOXONE HCL 0.4 MG/ML AMP IV PUSH PRN (17:30)
[2017-10-22] MEDS ORDERED: ONDANSETRON HCL 4 MG/2 ML VIAL IVP PRN (17:30)
[2017-10-22] MEDS: SODIUM CHLOR 0.9% 1000 ML INJ 1,000 ML IV SCH (17:56)
[2017-10-22] MEDS ORDERED: MAGNESIUM CITRATE SOLN 300 ML BTL PEG ONE (18:00)
--- NOTE | 2017-10-22 18:03 | RADRPT ---
EXAM DATE/TIME: 10/22/2017 17:30 [facility] COMPARISON: No previous studies available for comparison. INDICATIONS : Nausea/Vomiting. MEDICAL HISTORY : Hypercholesterolemia. Hypertension. Chronic obstructive pulmonary disease. Seizures. Hyperlipidemia. Asthma. Dyspnea. Gastroesophageal reflux disease. Arthritis. SURGICAL HISTORY : Tonsillectomy. Nasal surgery. C3-C4 fusion. ENCOUNTER: Initial ACUITY: 1 day PAIN SCORE: 3/10 LOCATION: Right upper quadrant MEASUREMENTS: LIVER: 12.8 cm length COMMON DUCT: 4 mm RIGHT KIDNEY: 10.3 x 4.3 x 4.9 cm FINDINGS: LIVER: Normal echotexture without focal lesion or ductal dilatation. COMMON DUCT: No intraluminal mass or stone visualized. GALLBLADDER: Contains no stones, demonstrates no wall thickening or pericholecystic fluid. PANCREAS: The visualized portions are within normal limits. RIGHT KIDNEY: No evidence of hydronephrosis, stone, or mass. CONCLUSION: Negative examination. Andrew Porter MD on October 22, 2017 at 18:00 Board Certified Radiologist. This report was verified electronically.
--- NOTE | 2017-10-22 18:29 | HHI.HP ---
[facility] Primary Care Physician Shannan Knowles Do, MD Admission Diagnosis UTI/sepsis Diagnoses: (1) UTI (urinary tract infection) (2) Nausea & vomiting (3) Constipation (4) Poor fluid intake Chief Complaint: Nausea, vomiting, unable to have a bowel movement Travel History International Travel<30 Days: No Contact w/Intl Traveler <30 Da: No Traveled to Known Affected Are: No History of Present Illness is a 62-year-old female on Hospice with past medical history significant for COPD, GERD, seizures, hypertension, hyperlipidemia, COPD , neuropathy, gastroparesis, and CVA who presents to the emergency department today with complaints of GJ tube leakage. Patient's tube was recently replaced by Dr. Cadet on 10/15. Patient is seen and examined in C pod with no family at bedside. She is awake but with periods of drowsiness in between, poor historian. Throughout my interview patient falls asleep but arouses easily to light touch. Patient reports that she has been having nausea, vomiting, and constipation. She reports that she has been trying lactulose numerous times with no bowel movement. She reports that she has not been able to take anything orally as she does not have any appetite on top of nausea and vomiting. She endorses abdominal discomfort, still passing gas. Patient denies any fevers, chills, cough, shortness of breath, chest pains, or heart palpitations. She denies any dysuria, hematuria, headache, or sore throat. Patient states that she is cared for at home by her . Review of Systems ROS Limitations: Poor Historian Constitutional: COMPLAINS OF: Change in appetite Respiratory: DENIES: Cough, Shortness of breath Cardiovascular: DENIES: Chest pain, Lower Extremity Edema Gastrointestinal: COMPLAINS OF: Abdominal pain, Nausea, Vomiting, Difficulty Swallowing Neurologic: DENIES: Headache Except as stated in HPI: all other systems reviewed are Neg Past Family Social History Past Medical History Gathered from prior EMR and patient Hypertension Hyperlipidemia GERD COPD Neuropathy Gastroparesis CVA Past Surgical History Gathered from prior EMR and patient Tonsillectomy Cervical spine surgery Niesen fundoplication G-J tube with recent exchange Reported Medications Reported Meds & Active Scripts Active Reported Benefiber (Wheat Dextrin) 3 Gram/3.8 Gram Powder PO DAILY PRN 2 TEASPOONSFUL IN JUICE OR WATER Simethicone 125 Mg Chw 125 Mg PO BID Potassium Chloride ER (Potassium Chloride) 10 Meq Tab 10 Meq PO DAILY Morphine Liq (Morphine Sulfate) 20 Mg/Ml Liq 10 Mg PO Q2HR PRN Morphine Liq (Morphine Sulfate) 20 Mg/Ml Liq 5 Mg PO Q2HR PRN Milk of Magnesia Liq (Magnesium Hydroxide) 400 Mg/5 Ml Susp 30 Ml PO DAILY PRN Ativan (Lorazepam) 1 Mg Tab 1 Mg PO Q2HR PRN Haloperidol 1 Mg Tab 1 Mg PO Q4HR PRN Lasix (Furosemide) 40 Mg Tab 40 Mg PO BID Colace (Docusate Sodium) 100 Mg Capsule 100 Mg PO BID PRN Magic Mouthwash Pediatric/Adult Liq (Lidocaine/Diphenhydr/Alum/Mg/Simeth) 60 Ml Susp 5 Ml SWISH-SWAL QID PRN Each 5mL contains: Diphenydramine 4.5mg, Viscous Lidocaine 2% 10mg, Maalox Advanced Regular Strength 2.7ml Azelastine Nasal [place] (Azelastine HCl) 0.1% [place] 1 [place] EACH NARE BID Acidophilus Lactobacillus (Lactobacillus Acidophilus) 1 Each Capsule 1 Cap PO DAILY Duoneb (Ipratropium-Albuterol Neb) 0.5-2.5 Mg/3 Ml Neb 3 Ml INH Q4HR PRN Dexamethasone 2 Mg Tab 2 Mg PO BID Lorazepam 0.5 Mg Tab 0.5 Mg PO Q2HR PRN Biscolax Supp (Bisacodyl) 10 Mg Supp 10 Mg RECTAL DAILY PRN Senna-Plus (Sennosides-Docusate Sodium) 8.6-50 Mg Tab 1 Tab PO BID PRN Omeprazole 20 Mg Tab 20 Mg PO BID Guaifenesin Liq (Guaifenesin) 100 mg/5 ML Soln 100 Mg PO Q6H PRN Prochlorperazine Maleate 10 Mg Tab 10 Mg PO Q6H PRN Morphine ER (Morphine Sulfate) 30 Mg Tab 30 Mg PO Q8HR Tylenol Extra Strength (Acetaminophen) 500 Mg Tablet 1 Tab PO Q8HR PRN PRN Aspirin EC Low Dose (Aspirin) 81 Mg Tabec 162 Mg PO DAILY Constulose Liq (Lactulose) 10 Gm/15 Ml Soln 30 Ml PO BID Clotrimazole [place] (Clotrimazole) 10 Mg Troc 10 Mg PO TID Clonazepam 0.5 Mg Tab 0.5 Mg PO Q6HR Gabapentin 100 Mg Cap 200 Mg PO TID Take 2 capsules by mouth 3 times daily PRN Ventolin Hfa 18 GM Inh (Albuterol Sulfate) 90 Mcg/Act Aer 1 Puff INH Q6HR PRN Breo Ellipta Inh (Fluticasone/Vilanterol) 100-25 Mcg/Act Inh 1 Puff INH DAILY Use daily at the same time. Baclofen 20 Mg Tab 20 Mg PO QID Allergies: Coded Allergies: diphenhydramine (Unverified Allergy, Severe, UNABLE TO BREATHE, 10/22/17) dronabinol (Unverified Allergy, Severe, confusions paranoid seizure like activity, 10/22/17) ibuprofen (Unverified Allergy, Severe, AFFECTS MY STOMACH, 10/22/17) aspirin (Unverified Allergy, Intermediate, NAUSEA, 10/22/17) do not take a full strength, can only take a baby aspirin and enteric coated. codeine (Unverified Allergy, Intermediate, 10/22/17) massive headaches epinephrine (Unverified Allergy, Unknown, PT DOESN'T RECALL HAVING ALLERGY /ADVERSE, 10/22/17) Uncoded Allergies: ANTIHISTAMINE (Allergy, Intermediate, 03/15/17) difficulty breathing Family History Patient is adopted Social History Ex-smoker, denies alcohol or illicit drug use. Physical Exam Vital Signs Vital Signs Date Time Temp Pulse Resp B/P (MAP) Pulse Ox O2 Delivery O2 Flow Rate FiO2 10/22/17 16:56 75 10 100/64 (76) 95 Nasal Cannula 3.00 10/22/17 16:31 62 10 85/58 (67) 97 Nasal Cannula 3.00 10/22/17 15:45 81 12 81/53 (62) 96 Nasal Cannula 3.00 10/22/17 15:28 86 22 102/63 (76) 96 Nasal Cannula 4.00 10/22/17 14:46 118 20 105/70 (82) 91 Nasal Cannula 5.00 10/22/17 14:38 98 20 98/63 (75) 89 Physical Exam GENERAL: This is a well-nourished, well-developed patient, who appears drowsy. SKIN: No rashes, ecchymoses or lesions. Cool and dry. HEAD: Atraumatic. Normocephalic. EYES: Pupils equal round and reactive. Unable to gaze to left side. No scleral icterus. No injection or drainage. ENT: Nose without bleeding, purulent drainage or septal hematoma. Throat without erythema. Airway patent. NECK: Trachea midline. No JVD . Supple, nontender. CARDIOVASCULAR: Regular rate and rhythm without murmurs, gallops, or rubs. RESPIRATORY: Poor effort but clear to auscultation. Breath sounds equal bilaterally. No wheezes, rales, or rhonchi. GASTROINTESTINAL: Abdomen soft, nondistended, tenderness to mild palpation. No palpable masses. No guarding. Normoactive bowel sounds in all quadrants. G-J tube noted, scant amount of brown discharge around site noted. MUSCULOSKELETAL: Extremities without clubbing, cyanosis, or edema. No joint tenderness, effusion, or edema noted. No calf tenderness. NEUROLOGICAL: Awake and alert, oriented x3. Drowsy but arouses to light touch. LLE flaccid, LUE 2/5, RLE 3/5, RUE 4/5. Sensory grossly within normal limits. Speech is slow but clear. Left side neglect. Laboratory Laboratory Tests Test 10/22/17 14:45 10/22/17 16:50 White Blood Count 8.4 Red Blood Count 4.66 Hemoglobin 14.8 Hematocrit 45.1 Mean Corpuscular Volume 96.9 Mean Corpuscular Hemoglobin 31.7 Mean Corpuscular Hemoglobin Concent 32.7 Red Cell Distribution Width 13.9 Platelet Count 210 Mean Platelet Volume 7.9 Neutrophils (%) (Auto) 77.5 Lymphocytes (%) (Auto) 13.0 Monocytes (%) (Auto) 7.7 Eosinophils (%) (Auto) 1.1 Basophils (%) (Auto) 0.7 Neutrophils # (Auto) 6.5 Lymphocytes # (Auto) 1.1 Monocytes # (Auto) 0.7 Eosinophils # (Auto) 0.1 Basophils # (Auto) 0.1 CBC Comment DIFF FINAL Differential Comment Urine Color YELLOW Urine Turbidity HAZY Urine pH 6.5 Urine Specific [place] 1.013 Urine Protein TRACE Urine Glucose (UA) NEG Urine Ketones NEG Urine Occult Blood MOD Urine Nitrite NEG Urine Bilirubin NEG Urine Urobilinogen LESS THAN 2.0 Urine Leukocyte Esterase LARGE Urine RBC 21 Urine WBC Urine WBC Clumps FEW Urine Bacteria RARE Urine Hyaline Casts 18 Urine Mucus FEW Microscopic Urinalysis Comment CATH-CULTURE IND Blood Urea Nitrogen 15 Creatinine 0.87 Random Glucose 124 Total Protein 6.9 Albumin 2.9 Calcium Level 8.6 Alkaline Phosphatase 81 Aspartate Amino Transf (AST/SGOT) 51 Alanine Aminotransferase (ALT/SGPT) 54 Total Bilirubin 0.5 Sodium Level 140 Potassium Level 4.2 Chloride Level 93 Carbon Dioxide Level 43.8 Anion Gap 3 Estimat Glomerular Filtration Rate 66 Lactic Acid Level 0.9 Date/Time Source Procedure Growth Status 10/22/17 16:55 Blood Peripheral Aerobic Blood Culture Pending Received 10/22/17 16:55 Blood Peripheral Anaerobic Blood Culture Pending Received 10/22/17 14:45 Urine Clean Catch Urine Culture Pending Received Result Diagram: 10/22/17 1445 10/22/17 1445 Caprini VTE Risk Assessment Caprini VTE Risk Assessment: Mod/High Risk (score >= 2) Caprini Risk Assessment Model Point Value = 1 Point Value = 2 Point Value = 3 Point Value = 5 Age 41-60 Minor surgery BMI > 25 kg/m2 Swollen legs Varicose veins or History of unexplained or recurrent spontaneous Oral contraceptives or hormone replacement Sepsis (< 1 month) Serious lung disease, including pneumonia (< 1 month) Abnormal pulmonary function Acute myocardial infarction Congestive heart failure (< 1 month) History of inflammatory bowel disease Medical patient at bed rest Age 61-74 Arthroscopic surgery Major open surgery (> 45 min) Laparoscopic surgery (> 45 min) Malignancy Confined to bed (> 72 hours) Immobilizing plaster cast Central venous access Age >= 75 History of VTE Family history of VTE Factor V Leiden Prothrombin [id number] Lupus anticoagulant Anticardiolipin antibodies Elevated serum homocysteine Heparin-induced thrombocytopenia Other congenital or acquired thrombophilia Stroke (< 1 month) Elective arthroplasty Hip, pelvis, or leg fracture Acute spinal cord injury (< 1 month) Prophylaxis Regimen Total Risk Factor Score Risk Level Prophylaxis Regimen 0-1 Low Early ambulation 2 Moderate Order ONE of the following: *Sequential Compression Device (SCD) *Heparin 5000 units SQ BID 3-4 Higher Order ONE of the following medications: *Heparin 5000 units SQ TID *Enoxaparin/Lovenox 40 mg SQ daily (WT < 150 kg, CrCl > 30 mL/min) *Enoxaparin/Lovenox 30 mg SQ daily (WT < 150 kg, CrCl > 10-29 mL/min) *Enoxaparin/Lovenox 30 mg SQ BID (WT < 150 kg, CrCl > 30 mL/min) AND/OR *Sequential Compression Device (SCD) 5 or more Highest Order ONE of the following medications: *Heparin 5000 units SQ TID (Preferred with Epidurals) *Enoxaparin/Lovenox 40 mg SQ daily (WT < 150 kg, CrCl > 30 mL/min) *Enoxaparin/Lovenox 30 mg SQ daily (WT < 150 kg, CrCl > 10-29 mL/min) *Enoxaparin/Lovenox 30 mg SQ BID (WT < 150 kg, CrCl > 30 mL/min) AND *Sequential Compression Device (SCD) Assessment and Plan Assessment and Plan is a 62-year-old female on Hospice with past medical history significant for COPD, GERD, seizures, hypertension, hyperlipidemia, COPD , neuropathy, gastroparesis, and CVA who presents to the emergency department today with complaints of GJ tube leakage. Patient will be admitted to observation unit. Leaking G-J Tube - Patient's peg tube balloon was reinflated while in the ED and now no longer leaking - KUB in the ED verified GJ tube position - Resume TF and monitor for ongoing leaks Nausea/vomiting Poor intake/dehydration - 1L IV NS received in the ED - Patient with BP on the low side 80/50 to 100/60's - Continue IV NS@100ml/hr - TF with Jevity 1.5 goal rate 40ml/hr - Zofran PRN for nausea Constipation Abdominal tenderness - KUB reviewed, gas pattern normal, moderate amount of stool in colon, no air fluid, no masses - Pending gallbladder US - Will provide with mag citrate via peg for BM UTI - UA with large leukocyte esterase, RBCs, as well as bacteria - CBC reviewed with no leukocytosis, no recorded fevers, tachycardia noted once, Blood cultures X2 obtained, lactic acid 0.9 - Patient started on IV Zosyn in the ED, will continue Zosyn and follow urine cultures - Check labs in the AM Drowsiness - Possibly related to dehydration, poor intake or UTI - IV hydration, attempt G-tube feedings and treat UTI DVT prophylaxis-SCD's Code status to be clarified with due to patients AMS Discussed with Scotty Green Oct 22, 2017 18:29
[2017-10-22] MEDS ORDERED: predniSONE 5 MG/5 ML CUP PEG ONE (18:45)
[2017-10-22] MEDS ORDERED: ALBUTEROL SULFATE 90 MCG/ACT HFA 8 GM INHALER INH PRN (18:45)
[2017-10-22] MEDS: SODIUM CHLORIDE 0.9% FLUSH 10 ML FLUSH IV FLUSH SCH (20:57)
[2017-10-22] MEDS: MORPHINE SULFATE 2 MG/ML INJ IV PRN (20:58)
[2017-10-23] VITALS: BP 121/65; PULSE 87; RESP 17; TEMP 98; O2SAT 86; O2SAT 96
[2017-10-23] MEDS: PIPERACIL-TAZO 3.375 GM PREMIX 50 ML IV SCH ×2 (00:36→09:28)
[2017-10-23] MEDS: SODIUM CHLOR 0.9% 1000 ML INJ 1,000 ML IV SCH (04:09)
[2017-10-23 08:00] VITALS: BP 144/77; PULSE 95; RESP 20; TEMP 98.8; O2SAT 91
[2017-10-23] MEDS ORDERED: FLUTICASONE 100 MCG/VILANTEROL 25 MCG INHALER INH SCH (09:00)
[2017-10-23] MEDS ORDERED: predniSONE 5 MG/5 ML CUP PEG SCH (09:00)
[2017-10-23] MEDS: SODIUM CHLORIDE 0.9% FLUSH 10 ML FLUSH IV FLUSH SCH (09:00)
--- NOTE | 2017-10-23 09:44 | HHI.DCPOC ---
Discharge Care Plan Diagnosis: (1) GJ leakage Goals to Promote Your Health * To prevent worsening of your condition and complications * To maintain your health at the optimal level Directions to Meet Your Goals Take your medications as prescribed Follow your dietary instruction Follow activity as directed Keep your appointments as scheduled Take your immunizations and boosters as scheduled If your symptoms worsen call your PCP, if no PCP go to Urgent Care Center or Emergency Room Smoking is Dangerous to Your Health. Avoid second hand smoke Call the 24-hour hour crisis hotline for domestic abuse at Inga Hou MD Oct 23, 2017 09:44
[2017-10-23 09:56] LABS: AUTOMATED NEUTROPHIL # 6.9 TH/MM3 (1.8-7.7); BASOPHIL % 0.5 % (0.0-2.0); EOSINOPHIL # 0.1 TH/MM3 (0-0.4); EOSINOPHIL % 1.1 % (0.0-4.0); HEMATOCRIT 44.1 % (35.0-46.0); HEMOGLOBIN 14.4 GM/DL (11.6-15.3); LYMPH % 11.7 % (9.0-44.0); LYMPHOCYTE # 1.1 TH/MM3 (1.0-4.8); MEAN CELL VOLUME 95.8 FL (80.0-100.0); MEAN CORPUSCULAR HEMOGLOBIN 31.3 PG (27.0-34.0); MEAN CORPUSCULAR HGB CONC 32.7 % (32.0-36.0); MEAN PLATELET VOLUME 7.6 FL (7.0-11.0); MONO % 10.6 % (0.0-8.0); NEUT % 76.1 % (16.0-70.0); PLATELET COUNT 186 TH/MM3 (150-450); RED BLOOD COUNT 4.61 MIL/MM3 (4.00-5.30); RED CELL DISTRIBUTION WIDTH 13.9 % (11.6-17.2); WHITE BLOOD COUNT 9.1 TH/MM3 (4.0-11.0)
[2017-10-23 10:12] LABS: ALBUMIN 2.7 GM/DL (3.4-5.0); ALKALINE PHOSPHATASE 77 U/L (45-117); ALT (GPT) 42 U/L (10-53); AST (GOT) 30 U/L (15-37); BICARBONATE 37.1 MEQ/L (21.0-32.0); BLOOD UREA NITROGEN 16 MG/DL (7-18); CALCIUM 8.7 MG/DL (8.5-10.1); CHLORIDE 101 MEQ/L (98-107); GLOMERULAR FILTRATION RATE 85 ML/MIN (>89); GLUCOSE,RANDOM 98 MG/DL (74-106); SODIUM (NA) 146 MEQ/L (136-145); TOTAL BILIRUBIN ADULT 0.5 MG/DL (0.2-1.0); TOTAL PROTEIN 6.3 GM/DL (6.4-8.2)
[2017-10-23] MEDS: MORPHINE SULFATE 2 MG/ML INJ IV PRN (12:12)
--- NOTE | 2017-10-23 15:19 | HHI.DS ---
Discharge Summary Admission Date Oct 22, 2017 at 17:33 Discharge Date: Oct 23, 2017 Admitting Diagnosis leaking GJ tube (1) GJ leakage Diagnosis: Principal (2) Poor fluid intake ICD Code: R63.8 - Other symptoms and signs concerning food and fluid intake Diagnosis: Secondary Procedures See hospital course Brief History - From Admission is a 62-year-old female on Hospice with past medical history significant for COPD, GERD, seizures, hypertension, hyperlipidemia, COPD , neuropathy, gastroparesis, and CVA who presents to the emergency department today with complaints of GJ tube leakage. Patient's tube was recently replaced by Dr. Cadet on 10/15. Patient is seen and examined in C pod with no family at bedside. She is awake but with periods of drowsiness in between, poor historian. Throughout my interview patient falls asleep but arouses easily to light touch. Patient reports that she has been having nausea, vomiting, and constipation. She reports that she has been trying lactulose numerous times with no bowel movement. She reports that she has not been able to take anything orally as she does not have any appetite on top of nausea and vomiting. She endorses abdominal discomfort, still passing gas. Patient denies any fevers, chills, cough, shortness of breath, chest pains, or heart palpitations. She denies any dysuria, hematuria, headache, or sore throat. Patient states that she is cared for at home by her . CBC/BMP: 10/23/17 0829 10/23/17 0829 Significant Findings Laboratory Tests Test 10/22/17 14:45 10/22/17 16:50 10/23/17 08:29 Neutrophils (%) (Auto) 77.5 % (16.0-70.0) 76.1 % (16.0-70.0) Urine Turbidity HAZY (CLEAR) Urine Occult Blood MOD (NEG) Urine Leukocyte Esterase LARGE (NEG) Urine RBC 21 /hpf (0-3) Urine WBC Clumps FEW (NONE) Urine Bacteria RARE /hpf (NONE) Urine Mucus FEW /lpf (OCC) Random Glucose 124 MG/DL (74-106) Albumin 2.9 GM/DL (3.4-5.0) 2.7 GM/DL (3.4-5.0) Aspartate Amino Transf (AST/SGOT) 51 U/L (15-37) Alanine Aminotransferase (ALT/SGPT) 54 U/L (10-53) Chloride Level 93 MEQ/L (98-107) Carbon Dioxide Level 43.8 MEQ/L (21.0-32.0) 37.1 MEQ/L (21.0-32.0) Anion Gap 3 MEQ/L (5-15) Estimat Glomerular Filtration Rate 66 ML/MIN (>89) 85 ML/MIN (>89) Monocytes (%) (Auto) 10.6 % (0.0-8.0) Monocytes # (Auto) 1.0 TH/MM3 (0-0.9) Total Protein 6.3 GM/DL (6.4-8.2) Sodium Level 146 MEQ/L (136-145) PE at Discharge GENERAL: in NAD but looks chronically ill CARDIOVASCULAR: Regular rate and rhythm without murmurs, gallops, or rubs. RESPIRATORY: Breath sounds equal bilaterally. No accessory muscle use. GASTROINTESTINAL: Abdomen soft, non-tender, nondistended. PEG tube in place with leakage. 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 GJ continues to leak. Per hospice nurse patient was brought to the hospital for GJ tube removal. They stated that patient did not want any other further intervention and that they just wanted her GJ removed for more for comfort. They stated that fluids are leaking and is causing her to be wet which is making her very uncomfortable. Patient stated to me that she would like it removed. In terms of her constipation, nausea vomiting, poor p.o. intake patient stated that this has been chronic and she did not come in for these issues. Patient stated that she wants to go home today right after her tube is removed. Hospice nurse confirms everything and stated that once GJs remove for patient to go back home to hospice. She stated that hospice will arrange everything. Patient's nurse is outside the bedside during the interview. Hospital Course is a 62-year-old female on Hospice with past medical history significant for COPD, GERD, seizures, hypertension, hyperlipidemia, COPD , neuropathy, gastroparesis, and CVA who presents to the emergency department today with complaints of GJ tube leakage. Per hospice note nurse and patient herself she came to the hospital to have the GJ removed because the hospice nurse is not able to do this. In the emergency department patient had balloon reinflated by the ED provider and as noted he stated that there is no more leakage. Soon patient continued to have leakage when tube feeds were restarted. Per patient and hospice nurse they actually wanted the GJ removed. Patient had it replaced on October 15, 2017 which is more than 7 days. GJ was removed gauze were applied. Education was given. Patient was discharged from the hospital back to home with hospice as she wished. Pt Condition on Discharge: Deteriorating Discharge Disposition: Hospice/ Home Discharge Time: > 30 minutes Discharge Instructions DIET: Follow Instructions for: As Tolerated, No Restrictions Additional Diet Instructions: resume prior diet. Activities you can perform: Regular-No Restrictions Continued Medications: Albuterol 18 GM Inh (Ventolin Hfa 18 GM Inh) 90 Mcg/Act Aer 1 PUFF INH Q6HR PRN for SHORTNESS OF BREATH, #1 INHALER 0 Refills Fluticasone-Vilanterol Inh (Breo Ellipta Inh) 100-25 Mcg/Act Inh 1 PUFF INH DAILY, #1 INHALER 0 Refills Use daily at the same time. Inga Hou MD Oct 23, 2017 15:19
== END 2017-10-23 12:45 | disposition hospice, home (50) ==
LOC: NEPC 13:56 → NEDA 17:33 → N07A 18:54
PROVIDERS: ADMIT Family Medicine; ATTEND Family Medicine
DX: K94.23 Gastrostomy malfunction (principal); A41.9 Sepsis, unspecified organism; N39.0 Urinary tract infection, site not specified; E86.0 Dehydration; I10 Essential (primary) hypertension; E78.00 Pure hypercholesterolemia, unspecified; J44.9 Chronic obstructive pulmonary disease, unspecified; J45.909 Unspecified asthma, uncomplicated; K21.9 Gastro-esophageal reflux disease without esophagitis; K59.00 Constipation, unspecified; G62.9 Polyneuropathy, unspecified; M19.90 Unspecified osteoarthritis, unspecified site; Z87.891 Personal history of nicotine dependence; Z86.73 Personal history of transient ischemic attack (TIA), and cerebral infarction without residual deficits
CPT/HCPCS: 74018; 74019; 76705; 80053; 81001; 83605; 85025; 87040; 87077; 87086; 87186; 96361; 96365; 96366; 96375; 96376; 99285; G0378; J2270; J2543; J7030; J7512; Q9963